=== PATIENT | male | born 1935 | race Caucasian/White ===

== ENCOUNTER 2017-07-04 12:46 | Inpatient (IN) ==
[2017-07-04 13:33] LABS: Basophils % 0.8 %; Eosinophils # 0.1 K/mcL (0.0-0.6); Eosinophils % 2.5 %; Hematocrit 32.4 % (37.5-50.1); Hemoglobin 10.2 g/dL (12.9-16.9); Immature Granulocytes % 0.4 % (0-4); Lymphocytes # 1.2 K/mcL (0.6-4.6); Lymphocytes % 22.1 %; Mean Corpuscular HGB Conc 31.5 g/dL (31.6-35.5); Mean Corpuscular Hemoglobin 29.4 pg (28.0-33.3); Mean Corpuscular Volume 93.4 fL (83.0-100.0); Mean Platelet Volume 9.9 fL (9.4-12.4); Monocytes # 0.4 K/mcL (0.0-1.3); Monocytes % 7.4 %; Neutrophils # 3.5 K/mcL (1.6-8.9); Platelet Count 228 K/mcL (140-400); Red Blood Count 3.47 M/mcL (4.19-5.50); Red Cell Distribution Width 13.3 % (11.5-14.5); Segmented Neutrophils % 66.8 %
[2017-07-04 13:53] LABS: Troponin I < 0.03 ng/mL (< 0.04)
[2017-07-04 13:56] LABS: BUN/Creatinine Ratio 13 (6-26); Blood Urea Nitrogen 14 mg/dL (8-23); Calcium 8.8 mg/dL (8.6-10.3); Carbon Dioxide 24 mEq/L (23-29); Chloride 107 mEq/L (98-107); Glucose 128 mg/dL (70-105); Osmolality,Calculated 288 (280-300); Potassium 4.5 mEq/L (3.5-5.1); Sodium 138 mEq/L (136-145); eGFR For African Americans > 60 (> 60); eGFR For Non-African Americans > 60 (> 60)
[2017-07-04] MEDS ORDERED: Furosemide 20 MG/2 ML VIAL IVP ONE (13:58)
--- NOTE | 2017-07-04 14:00 | Emergency Department Note ---
Disposition Clinical Impression: CHF (congestive heart failure) Qualifiers: Heart failure type: right-sided Heart failure chronicity: acute Qualified Code( s): I50.811 - Acute right heart failure Atrial fibrillation Qualifiers: Atrial fibrillation type: unspecified Qualified Code(s): I48.91 - Unspecified atrial fibrillation Disposition: Admitted As Inpatient Condition: Good Time of Disposition: 15:41 General Adult HPI - General Chief complaint: ED Shortness of Breath/Dyspnea Stated complaint: MELISSA Source: patient, family Limitations: no limitations Nursing Notes Reviewed: Yes Vital Signs Reviewed: Yes - History of Present Illness HPI Narrative: 81-year-old male with significant past medical history of hypertension presenting to the emergency department with chief complaint of dyspnea on exertion. Patient states for the last 1-2 weeks he has become progressively more dyspneic on exertion. Denies any history of COPD or asthma. Denies any fevers, cough, nausea, vomiting or diarrhea. Denies chest pain or abdominal pain. Denies any cardiac history. Patient states his progressively been getting worse. No known sick contacts. Patient denies any concerns or complaints while he is sitting in the bed. Pain Scale: 0 - Related Data Home Medications Medication Instructions Recorded Confirmed Doxazosin [Cardura] 8 mg PO HS 05/14/15 07/04/17 Mv-Min/Vit C/Glut/Rhea AC/Hc124 1 tab PO DAILY 06/16/17 07/04/17 [Airborne Tablet Chewable] Omeprazole [PriLOSEC] 20 mg PO DAILY 06/16/17 07/04/17 Clarithromycin [Biaxin] 500 mg PO BID 07/04/17 07/04/17 metroNIDAZOLE [Metronidazole] 500 mg PO BID 07/04/17 07/04/17 Allergies Allergy/AdvReac Type Severity Reaction Status Date / Time aspirin Allergy Hypertensio Verified 06/16/17 07:32 n All systems ED: reviewed and negative except as stated. Cardiovascular: Reports: dyspnea on exertion Respiratory: Reports: dyspnea Past Medical History - Past Medical History Attestation: Yes The following information was validated with the patient. Medical history: Reports: arthritis, other Surgical history: Reports: herniorrhaphy, vasectomy Psychiatric history: Reports: no psych history - Social History Smoking Status: Never smoker Smokeless Tobacco Status: No Alcohol use: Reports: none Drug use: Reports: none Physical Exam - General Limitations: no limitations General appearance: alert, in no apparent distress - Head Head exam: atraumatic, normocephalic, normal inspection - Eye Eye exam: Present: normal appearance. Absent: scleral icterus, conjunctival injection - ENT ENT exam: normal exam, mucous membranes moist - Neck Neck exam: Present: normal inspection, full ROM. Absent: tenderness, meningismus - Chest Chest inspection: Present: normal inspection, symmetric chest wall rise. Absent : tenderness, rash - Respiratory Respiratory exam: Present: other (Decreased breath sounds posteriorly) - Cardiovascular Cardiovascular exam: Present: tachycardia, irregular rhythm - Abdominal Exam Abdominal exam: Present: soft, Non-Tender. Absent: distention, guarding, rebound - Extremities Exam Extremities exam: Present: normal inspection, full ROM - Neurological Exam Neurological exam: Present: alert, oriented X3 - Psychiatric Psychiatric exam: Present: normal affect, normal mood - Skin Skin exam: Present: warm, intact Course Course Narrative: 81-year-old male presenting to the emergency department for dyspnea on exertion. Patient's physical exam shows decreased lung sounds bilaterally and irregular tachycardia. We will obtain basic laboratory analysis including troponin along with an EKG and chest x-ray. Patient is alert and oriented 3 in the room. Patient is tachycardic but otherwise vital signs stable. Disposition most likely admission but pending results. Patient agrees with this plan. - Reevaluation(s) Reevaluation #1: Patient's EKG shows atrial fibrillation. Patient denies being on any anticoagulation or rate control at this time. Patient's laboratory analysis shows mildly elevated BNP and chest x-ray shows bilateral pulmonary edema. We will provide the patient with 20 of IV Lasix. We will also provide him with a 10 mg push dose of Cardizem and a Cardizem drip. Patient is alert and oriented 3. Tachycardic in the room but otherwise vital signs stable. We will plan to admit the patient at this time for atrial fibrillation and CHF. I spoke with the hospitalist on-call Dr. Patino who agrees to accept the patient at this time. Vital Signs Temperature 97.9 F 07/04/17 12:48 Pulse Rate 111 07/04/17 12:48 Respiratory Rate 18 07/04/17 12:48 Blood Pressure 109/70 07/04/17 12:48 O2 Sat by Pulse Oximetry 97 07/04/17 12:48 Temperature 97.9 F 07/04/17 12:48 Pulse Rate 112 07/04/17 15:23 Respiratory Rate 19 07/04/17 15:23 Blood Pressure 109/77 07/04/17 15:23 O2 Sat by Pulse Oximetry 92 07/04/17 15:23 Oxygen Delivery Oxygen Delivery Nasal Cannula Medical Decision Making - Lab Data Result diagrams: 07/04/17 13:12 07/04/17 13:12 Lab Results 07/04/17 07/04/17 07/04/17 Range/Units 13:12 13:12 13:12 WBC 5.3 (4.3-11.1) K/mcL RBC 3.47 L (4.19-5.50) M/mcL Hgb 10.2 L (12.9-16.9) g/dL Hct 32.4 L (37.5-50.1) % MCV 93.4 (83.0-100.0) fL MCH 29.4 (28.0-33.3) pg MCHC 31.5 L (31.6-35.5) g/dL RDW 13.3 (11.5-14.5) % Plt Count 228 (140-400) K/mcL MPV 9.9 (9.4-12.4) fL Immature Gran % 0.4 (0-4) % Seg Neutrophils % 66.8 % Lymphocytes % 22.1 % Monocytes % 7.4 % Eosinophils % 2.5 % Basophils % 0.8 % Neutrophils # 3.5 (1.6-8.9) K/mcL Lymphocytes # 1.2 (0.6-4.6) K/mcL Monocytes # 0.4 (0.0-1.3) K/mcL Eosinophils # 0.1 (0.0-0.6) K/mcL Basophils # 0.0 (0.0-0.2) K/mcL Sodium 138 (136-145) mEq/L Potassium 4.5 (3.5-5.1) mEq/L Chloride 107 (98-107) mEq/L Carbon Dioxide 24 (23-29) mEq/L BUN 14 (8-23) mg/dL Creatinine 1.06 (0.70-1.30) mg/dL Est GFR ( Amer) > 60 (> 60) Est GFR (Non-Af Amer) > 60 (> 60) BUN/Creatinine Ratio 13 (6-26) Glucose 128 H (70-105) mg/dL Calculated Osmolality 288 (280-300) Lactic Acid 2.1 (0.5-2.2) mmol/L Calcium 8.8 (8.6-10.3) mg/dL Troponin I < 0.03 (< 0.04) ng/mL B-Natriuretic Peptide (Less than 100) pg/mL 07/04/17 Range/Units 13:12 WBC (4.3-11.1) K/mcL RBC (4.19-5.50) M/mcL Hgb (12.9-16.9) g/dL Hct (37.5-50.1) % MCV (83.0-100.0) fL MCH (28.0-33.3) pg MCHC (31.6-35.5) g/dL RDW (11.5-14.5) % Plt Count (140-400) K/mcL MPV (9.4-12.4) fL Immature Gran % (0-4) % Seg Neutrophils % % Lymphocytes % % Monocytes % % Eosinophils % % Basophils % % Neutrophils # (1.6-8.9) K/mcL Lymphocytes # (0.6-4.6) K/mcL Monocytes # (0.0-1.3) K/mcL Eosinophils # (0.0-0.6) K/mcL Basophils # (0.0-0.2) K/mcL Sodium (136-145) mEq/L Potassium (3.5-5.1) mEq/L Chloride (98-107) mEq/L Carbon Dioxide (23-29) mEq/L BUN (8-23) mg/dL Creatinine (0.70-1.30) mg/dL Est GFR ( Amer) (> 60) Est GFR (Non-Af Amer) (> 60) BUN/Creatinine Ratio (6-26) Glucose (70-105) mg/dL Calculated Osmolality (280-300) Lactic Acid (0.5-2.2) mmol/L Calcium (8.6-10.3) mg/dL Troponin I (< 0.04) ng/mL B-Natriuretic Peptide 596 H (Less than 100) pg/mL - EKG Data EKG #1 EKG attestation: Yes I reviewed and interpreted this EKG. EKG results narrative: Atrial fibrillation with RVR. 144 bpm. QRS 94, QTC 380. No signs of ST segment elevation or acute ischemia. Compared to previous EKG on 06/18/2017 no significant changes noted.
--- NOTE | 2017-07-04 14:16 | Emergency Department Note ---
Disposition Clinical Impression: CHF (congestive heart failure) Qualifiers: Heart failure type: right-sided Heart failure chronicity: acute Qualified Code( s): I50.811 - Acute right heart failure Disposition: Admitted As Inpatient Condition: Good Referrals: Vance Judge Jr, MD [Primary Care Provider] - Forms: ED Satisfaction Letter Time of Disposition: 14:15 General Adult HPI - General Chief complaint: ED Shortness of Breath/Dyspnea Stated complaint: MELISSA Source: patient, family Limitations: no limitations - History of Present Illness Pain Scale: 0 - Related Data Home Medications Medication Instructions Recorded Confirmed Doxazosin [Cardura] 8 mg PO HS 05/14/15 06/18/17 Mv-Min/Vit C/Glut/Rhea AC/Hc124 1 tab PO DAILY 06/16/17 06/18/17 [Airborne Tablet Chewable] Omeprazole [PriLOSEC] 20 mg PO DAILY 06/16/17 06/18/17 Allergies Allergy/AdvReac Type Severity Reaction Status Date / Time aspirin Allergy Hypertensio Verified 06/16/17 07:32 n Past Medical History - Past Medical History Medical history: Reports: arthritis, other Surgical history: Reports: herniorrhaphy, vasectomy Psychiatric history: Reports: no psych history - Social History Smoking Status: Never smoker Smokeless Tobacco Status: No Alcohol use: Reports: none Drug use: Reports: none Physical Exam - General Limitations: no limitations General appearance: alert, in no apparent distress Course - Reevaluation(s) Reevaluation #1: I examined this patient and my medical decision-making was reviewed with the SOLAR FIELD SERVICE TECHNICIAN/PA/Advanced Practice Nurse/Resident Physician. I agree with the documented findings, disposition and treatment plan as described except to the extent set forth below. ED attending: Patient's emergency medicine resident Dr. Little JOSHI. Please see copy of this note for H&P evaluation and management and ED disposition. We both had independent [id number] time in contact with this patient. Briefly: 81-year-old male no prior history of coronary artery disease CHF or COPD presents with 7-10 days of worsening dyspnea on exertion and fatigue. Denies chest pain vomiting fevers chills dysuria medication changes ill contacts exotic recent travel. ED workup shows EKG shows no acute ischemic changes. Chest x-ray read by radiology as positive for CHF and his laboratories are essentially normal limits the negative troponin. Patient will get 20 mg of IV Lasix since he has never had this in the past, and patient will be admitted for new onset CHF. Provided 30 minutes of critical care service for this patient. Admission disposition pending Time: 14:14 Vital Signs Temperature 97.9 F 07/04/17 12:48 Pulse Rate 111 07/04/17 12:48 Respiratory Rate 18 07/04/17 12:48 Blood Pressure 109/70 07/04/17 12:48 O2 Sat by Pulse Oximetry 97 07/04/17 12:48 Temperature 97.9 F 07/04/17 12:48 Pulse Rate 111 07/04/17 12:48 Respiratory Rate 18 07/04/17 12:48 Blood Pressure 109/70 07/04/17 12:48 O2 Sat by Pulse Oximetry 97 07/04/17 12:48 Oxygen Delivery Oxygen Delivery Room Air Medical Decision Making - Lab Data Result diagrams: 07/04/17 13:12 07/04/17 13:12 Lab Results 07/04/17 07/04/17 07/04/17 Range/Units 13:12 13:12 13:12 WBC 5.3 (4.3-11.1) K/mcL RBC 3.47 L (4.19-5.50) M/mcL Hgb 10.2 L (12.9-16.9) g/dL Hct 32.4 L (37.5-50.1) % MCV 93.4 (83.0-100.0) fL MCH 29.4 (28.0-33.3) pg MCHC 31.5 L (31.6-35.5) g/dL RDW 13.3 (11.5-14.5) % Plt Count 228 (140-400) K/mcL MPV 9.9 (9.4-12.4) fL Immature Gran % 0.4 (0-4) % Seg Neutrophils % 66.8 % Lymphocytes % 22.1 % Monocytes % 7.4 % Eosinophils % 2.5 % Basophils % 0.8 % Neutrophils # 3.5 (1.6-8.9) K/mcL Lymphocytes # 1.2 (0.6-4.6) K/mcL Monocytes # 0.4 (0.0-1.3) K/mcL Eosinophils # 0.1 (0.0-0.6) K/mcL Basophils # 0.0 (0.0-0.2) K/mcL Sodium 138 (136-145) mEq/L Potassium 4.5 (3.5-5.1) mEq/L Chloride 107 (98-107) mEq/L Carbon Dioxide 24 (23-29) mEq/L BUN 14 (8-23) mg/dL Creatinine 1.06 (0.70-1.30) mg/dL Est GFR ( Amer) > 60 (> 60) Est GFR (Non-Af Amer) > 60 (> 60) BUN/Creatinine Ratio 13 (6-26) Glucose 128 H (70-105) mg/dL Calculated Osmolality 288 (280-300) Lactic Acid 2.1 (0.5-2.2) mmol/L Calcium 8.8 (8.6-10.3) mg/dL Troponin I < 0.03 (< 0.04) ng/mL B-Natriuretic Peptide (Less than 100) pg/mL 07/04/17 Range/Units 13:12 WBC (4.3-11.1) K/mcL RBC (4.19-5.50) M/mcL Hgb (12.9-16.9) g/dL Hct (37.5-50.1) % MCV (83.0-100.0) fL MCH (28.0-33.3) pg MCHC (31.6-35.5) g/dL RDW (11.5-14.5) % Plt Count (140-400) K/mcL MPV (9.4-12.4) fL Immature Gran % (0-4) % Seg Neutrophils % % Lymphocytes % % Monocytes % % Eosinophils % % Basophils % % Neutrophils # (1.6-8.9) K/mcL Lymphocytes # (0.6-4.6) K/mcL Monocytes # (0.0-1.3) K/mcL Eosinophils # (0.0-0.6) K/mcL Basophils # (0.0-0.2) K/mcL Sodium (136-145) mEq/L Potassium (3.5-5.1) mEq/L Chloride (98-107) mEq/L Carbon Dioxide (23-29) mEq/L BUN (8-23) mg/dL Creatinine (0.70-1.30) mg/dL Est GFR ( Amer) (> 60) Est GFR (Non-Af Amer) (> 60) BUN/Creatinine Ratio (6-26) Glucose (70-105) mg/dL Calculated Osmolality (280-300) Lactic Acid (0.5-2.2) mmol/L Calcium (8.6-10.3) mg/dL Troponin I (< 0.04) ng/mL B-Natriuretic Peptide 596 H (Less than 100) pg/mL
[2017-07-04] MEDS ORDERED: Naloxone 0.4 MG/ML INJ IVP PRN (15:01)
--- NOTE | 2017-07-04 16:18 | Internal Med History&Physical ---
<Efra Hoffmann - Last Filed: 07/04/17 16:15> Date of Encounter: 07/04/17 Time of Encounter: 16:16 Assessment and Plan (1) Atrial fibrillation Current visit: Yes Status: Acute Patient presents today with a 7-10 day history of increasing shortness of breath , worsens with exertion. Additionally, he is reporting fatigue. He was found to be in A. fib RVR with rate in the 150s upon arrival to the ED. Otherwise he reports that he has no h/o A-fib. He was recently seen and treated at [facility] ED with an episode of A. fib with RVR. At that time he was given IV fluid and converted to sinus rhythm. He was offered admission but refused. He is not on any anticoagulation any negative chronotropic medications or antiarrhythmics. He remains hemodynamically stable. His initial troponin was 0.03. He was given a 10 mg Cardizem bolus IV push while in the emergency department and his rate decreased to the low 100s but he remained in atrial fibrillation. -Continuous telemetry, continuous SPO2 monitoring -Follow troponin -Continue Cardizem drip -Consult cardiology for further recommendations -Weight-based Lovenox dosing twice a day for DVT prophylaxis Qualifiers: Atrial fibrillation type: unspecified Qualified Code(s): I48.91 - Unspecified atrial fibrillation (2) CHF (congestive heart failure) Current visit: Yes Status: Acute Presents today with dyspnea for 7-10 days. He reports the dyspnea is worsened with exertion and that he has been extremely fatigued. He was found to be in A. fib RVR. Chest x-ray reveals pulmonary edema. BNP elevated at 596. No prior history of congestive heart failure, pulmonary edema likely related to A. fib with RVR. -TTE -Consult cardio -Trend troponin -20 mg Lasix IV push twice a day Qualifiers: Heart failure type: right-sided Heart failure chronicity: acute Qualified Code(s): I50.811 - Acute right heart failure (3) DVT prophylaxis Current visit: Yes Status: Acute Weight-based Lovenox twice a day for DVT prophylaxis Internal Medicine - H&P: HPI Chief complaint: dyspnea 7-10 days, A-fib RVR Admitted From: Home Plans for Post Hospital Care: Home History of present illness: Mr. Ferraro is a 81 year old male with a PMH of arthritis, CHF, COPD. Presents to [facility] today with a 7-10 day history of worsening dyspnea and fatigue. He reports that he has been having increasing shortness of breath with activity. He was recently seen at [facility] ED and found to be in atrial fibrillation with RVR. At that time he was given IV fluids and converted. He was offered admission at that time but declined and went home. He is not taking any anticoagulation or antiarrhythmic medications. He reports that this past Friday he began having an increase in shortness of breath is above what he has been experiencing. Additionally, he admits to lightheadedness. He denies any chest pain, diaphoresis, nausea, vomiting, unilateral extremity swelling or pain. ED workup shows atrial fibrillation with RVR rate of 150s. EKG. Chest x -ray reveals pulmonary edema, his BNP is 596 and his troponin is 0.03. Patient is being admitted due to new onset of congestive heart failure and a recurrent episode of atrial fibrillation. Past Med Surg Social Fam HX - Past Medical History Medical history: arthritis, other Psychiatric history: no psych history - Past Surgical History Surgical History: herniorrhaphy, vasectomy - Social History Smoking Status: Never smoker Smokeless Tobacco Status: No Alcohol use: none Drug use: none - Family History Brother Hx Family Cardiac Disorders: Yes (CAD) Internal Medicine - H&P: Meds Doxazosin [Cardura] 8 mg PO HS 05/14/15 [History] Mv-Min/Vit C/Glut/Rhea AC/Hc124 [Airborne Tablet Chewable] 1 tab PO DAILY [History] Omeprazole [PriLOSEC] 20 mg PO DAILY 06/16/17 [History] Clarithromycin [Biaxin] 500 mg PO BID 07/04/17 [History] metroNIDAZOLE [Metronidazole] 500 mg PO BID 07/04/17 [History] 3 Allergy/AdvReac Type Severity Reaction Status Date / Time aspirin Allergy Hypertensio Verified 06/16/17 07:32 n All Systems PM: A 10-system review of systems was performed and is negative for pertinent findings except as documented above in the HPI. Review of systems: REVIEW OF SYSTEMS GENERAL: Negative for any nausea, vomiting, fevers, chills, or weight loss. Positive for fatigue NEUROLOGIC: Negative for any blurry vision, blind spots, double vision, facial asymmetry, dysphagia, dysarthria, hemiparesis, hemisensory deficits, vertigo, ataxia. HEENT: Negative for any head trauma, neck trauma, neck stiffness, photophobia, phonophobia, sinusitis, rhinitis. CARDIAC: Negative for any chest pain, paroxysmal nocturnal dyspnea, peripheral edema. Positive for shortness of breath; increasing with activity, positive for palpitations, and tachycardia. PULMONARY: Negative for any shortness of breath, wheezing, COPD, or TB exposure. GASTROINTESTINAL: Negative for any abdominal pain, nausea, vomiting, bright red blood per rectum, melena. GENITOURINARY: Negative for any dysuria, hematuria, incontinence. INTEGUMENTARY: Negative for any rashes, cuts, insect bites. RHEUMATOLOGIC: Negative for any joint pains, photosensitive rashes, history of vasculitis or kidney problems. HEMATOLOGIC: Negative for any abnormal bruising, frequent infections or bleeding. - Constitutional Vitals: Temp Pulse Resp BP Pulse Ox 97.9 F 112 15 117/90 92 07/04/17 12:48 07/04/17 15:23 07/04/17 16:07 07/04/17 16:07 07/04/17 15:23 General appearance: Present: A&O X 3 Exam: PHYSICAL EXAMINATION: GENERAL: The patient is a well-developed, well-nourished male in mild distress. He is alert and oriented x3. HEENT: Head is normocephalic and atraumatic. Extraocular muscles are intact. Pupils are equal, round, and reactive to light and accommodation. NECK: Supple. No carotid bruits. No lymphadenopathy or thyromegaly. LUNGS: Clear/diminished to auscultation. HEART: Tachycardic, irregular rhythm. ABDOMEN: Soft, nontender, and nondistended. Positive bowel sounds. No hepatosplenomegaly was noted. EXTREMITIES: Without any cyanosis, clubbing, rash, lesions or edema. NEUROLOGIC: Cranial nerves II through XII are grossly intact. PSYCHIATRIC: Flat affect, but denies suicidal or homicidal ideations. SKIN: No ulceration or induration present. Internal Med - H&P Results - Labs CBC & Chem 7: 07/04/17 13:12 07/04/17 13:12 - EKG Data -: EKG Interpreted by Myself Rate: tachycardia - EKG Data Prior EKG available for review: yes When compared to previous EKG: there is no significant change EKG comments: Atrial fibrillation with rapid ventricular response rate of 144 07/04/17 16:27 - Impressions Impressions Chest X-Ray 07/04/17 12:52 IMPRESSION: Findings suggestive of pulmonary edema and bilateral pleural effusions. Redemonstration of multiple calcified pleural plaques. D/ / 07/04/2017 13:48:57 Lobito Carney MD / bassam Interpreting Provider: Lobito Carney MD <Shimon Patino - Last Filed: 07/04/17 17:50> Date of Encounter: 07/04/17 Time of Encounter: 17:30 Internal Medicine - H&P: HPI History of present illness: Mr. Ferraro is a 81 year old male All Systems PM: A 10-system review of systems was performed and is negative for pertinent findings except as documented above in the HPI. - Constitutional Vitals: Temp Pulse Resp BP Pulse Ox 97.8 F 107 20 110/76 94 07/04/17 16:38 07/04/17 16:38 07/04/17 16:38 07/04/17 16:38 07/04/17 17:07 Internal Med - H&P Results - Labs CBC & Chem 7: 07/04/17 13:12 07/04/17 13:12 - Attending Attestation I examined this patient and my medical decision-making was reviewed with the Nurse Practitioner, Efra Hoffmann. I agree with the documented findings, disposition and treatment plan as described with any changes as documented below. 81-year-old male patient with history of atrial fibrillation presented to the ER with complaints of worsening shortness of breath over the past week. He denies any chest pain but has been having some palpitations. No prior history of coronary artery disease. He had been seen in the ER here for A. fib with RVR and he was given IV fluids with his heart rhythm converting to sinus rhythm. He was then discharged home. Is not on any anticoagulation and does not take any rate controlling medications. No fever or chills. No cough. On exam, patient is awake and alert. In mild distress. Heart rate is tachycardic with irregular irregular rhythm. Breath sounds are normal with prolonged expiration EKG shows A. fib with RVR. Chest x-ray shows pulmonary edema and bilateral pleural effusions. Acute congestive heart failure: Possibly diastolic. We will get 2-D echocardiogram. Continue IV Lasix. Monitor vital signs. Monitor input and output. Consult cardiology. [place] with RVR: On Cardizem at this time. We will continue drip. Target heart rate less than 100. Patient has a [id number] score of at least 2. We will need to be on anticoagulation. Will place patient on IV Lovenox for now. Follow cardiology recommendations. COPD: History of COPD. O2 supplementation as needed. Not in acute exacerbation. Bronchodilators as needed. DVT prophylaxis with Lovenox.
[2017-07-04] MEDS ORDERED: Ipratropium/Albuterol Neb 3 ML IH PRN (17:50)
[2017-07-04] MEDS: *HR* Enoxaparin 80 MG/0.8 ML SYRINGE SQ SCH ×2 (18:00→18:02)
[2017-07-04] MEDS: Furosemide 20 MG/2 ML VIAL IVP SCH (21:55)
[2017-07-05 06:04] LABS: Basophils % 0.6 %; Eosinophils # 0.2 K/mcL (0.0-0.6); Eosinophils % 4.5 %; Hematocrit 31.7 % (37.5-50.1); Hemoglobin 10.1 g/dL (12.9-16.9); Immature Granulocytes % 0.2 % (0-4); Lymphocytes # 1.3 K/mcL (0.6-4.6); Lymphocytes % 25.8 %; Mean Corpuscular HGB Conc 31.9 g/dL (31.6-35.5); Mean Corpuscular Hemoglobin 29.6 pg (28.0-33.3); Mean Platelet Volume 9.7 fL (9.4-12.4); Monocytes # 0.4 K/mcL (0.0-1.3); Monocytes % 8.6 %; Neutrophils # 3.1 K/mcL (1.6-8.9); Platelet Count 219 K/mcL (140-400); Red Blood Count 3.41 M/mcL (4.19-5.50); Red Cell Distribution Width 13.4 % (11.5-14.5); Segmented Neutrophils % 60.3 %
[2017-07-05] MEDS: *HR* Enoxaparin 80 MG/0.8 ML SYRINGE SQ SCH ×2 (06:18→17:08)
[2017-07-05 06:27] LABS: BUN/Creatinine Ratio 14 (6-26); Blood Urea Nitrogen 14 mg/dL (8-23); Calcium 8.7 mg/dL (8.6-10.3); Carbon Dioxide 27 mEq/L (23-29); Chloride 105 mEq/L (98-107); Glucose 122 mg/dL (70-105); Osmolality,Calculated 288 (280-300); Sodium 138 mEq/L (136-145); eGFR For African Americans > 60 (> 60); eGFR For Non-African Americans > 60 (> 60)
[2017-07-05] MEDS: Furosemide 20 MG/2 ML VIAL IVP SCH ×2 (08:49→20:26)
[2017-07-05] MEDS: Multivit/Ca/Min/Fe/FA 1 TAB TABLET PO SCH (08:49)
--- NOTE | 2017-07-05 10:01 | Internal Med Progress Note ---
Date of Encounter: 07/05/17 Time of Encounter: 09:59 - Assessment and plan (1) Atrial fibrillation Current Visit: Yes Status: Acute Assessment and plan: The patient is in sinus rhythm now. Cardiology is consulted. He is on a Cardizem drip a 2.5 and rate is controlled in the 70-80s. Anticoagulation with Lovenox therapeutic dose for now. Await final cardiology recommendations. Follow-up on echocardiogram. Qualifiers: Atrial fibrillation type: unspecified Qualified Code(s): I48.91 - Unspecified atrial fibrillation (2) CHF (congestive heart failure) Current Visit: Yes Status: Acute Assessment and plan: We will continue to diurese with 20 mg IV Lasix twice a day. Cardiology to see. Troponin 0.032 so far.. Follow up on echo. O2 support as needed. Monitor I&O's.. Qualifiers: Heart failure type: right-sided Heart failure chronicity: acute Qualified Code(s): I50.811 - Acute right heart failure (3) DVT prophylaxis Current Visit: Yes Status: Acute Assessment and plan: On Lovenox therapeutic dose. - Subjective Interval history: Patient was seen and examined. No acute events. Converted to sinus. Shortness of breath is better. No chest pain. Afebrile.The patient was admitted yesterday with [place] st[place] with RVR and found to have evidence of congestive heart failure. Has been diuresed with 20 mg IV Lasix. Cardiology is consulted. - Constitutional Vitals: Temp Pulse Resp BP Pulse Ox 98.1 F 102 16 109/75 98 07/05/17 07:20 07/05/17 07:20 07/05/17 07:20 07/05/17 07:20 07/05/17 07:20 General appearance: Present: A&O X 3 Exam: GEN: NAD CVS: RRR. S1, S2, No m/r/g RESP: Bibasilar crackles ABD: Soft, NT, ND, +BS EXT: No edema. 2+ DP. No rashes NEURO: Nonfocal Internal Medicine: Result - Labs CBC & Chem 7: 07/05/17 05:52 07/05/17 05:52 Labs: Short CBC 07/05/17 Range/Units 05:52 WBC 5.1 (4.3-11.1) K/mcL Hgb 10.1 L (12.9-16.9) g/dL Hct 31.7 L (37.5-50.1) % Plt Count 219 (140-400) K/mcL Neutrophils # 3.1 (1.6-8.9) K/mcL BMP 07/05/17 05:52 Sodium 138 Potassium 4.0 Chloride 105 Carbon Dioxide 27 BUN 14 Creatinine 1.00 Glucose 122 H Calcium 8.7 Cardiac Enzymes 07/04/17 Range/Units 18:00 Troponin I < 0.03 (< 0.04) ng/mL Consult Discharge Plan - Plan Referrals: Vance Judge Jr, MD [Primary Care Provider] -
--- NOTE | 2017-07-05 10:53 | Cardiology Consult Note ---
Date of Encounter: 07/05/17 Time of Encounter: 09:30 Assessment and Plan (1) Atrial fibrillation Current Visit: Yes Status: Acute Per cardiology: -Upon admission noted to be a.fib RVR, HR 144. -ON cardizem drip at 2.5mg/hour. -Average HR previous 12 hours noted to be 96, a.fib. -BP marginal 90-100s systolic. -[id number] score 3(age, CHF). Currently on therapeutic lovenox. Denies bleeding or blood loss. Denies falls. Patient and agreeable for anticoagulation. -Echo pending. -Will switch cardizem to oral. -Further anticoagulation recommendations pending TTE. Qualifiers: Atrial fibrillation type: unspecified Qualified Code(s): I48.91 - Unspecified atrial fibrillation (2) CHF (congestive heart failure) Current Visit: Yes Status: Acute Per cardiology: -Admitted with CHF. -Plural effusions and pulmonary edema noted per Chest x-ray. -BNP 596. -On lasix IV 20mg BID. -Net negative 242ml. -Of note, still requiring O2, not normally on at home. -TTE pending. -Continue IV diuresis. -Further recommendations pending TTE. Qualifiers: Heart failure type: unspecified Heart failure chronicity: acute Qualified Code(s): I50.9 - Heart failure, unspecified Discussion w patient/family: The assessment and plan as outlined above was discussed with the patient and/or family members who expressed understanding and agreement. All questions were answered. Thank you for involving us in the care of your patient. Please call with any questions. Discussed and reviewed with . History of Present Illness Consult date: 07/04/17 Requesting physician: Efra Hoffmann Consult reason: CHF, a.fib RVR Chief complaint: shortness of breath History of present illness: Mr. Ferraro is a 81 year old male with a relevant past medical history of CHF, arthritis, possible history of a.fib. Patient presented to [facility] with complaints of increased shortness of breath. Patient reports 5 pound weight gain at home. Patient was not be in a.fib RVR upon presentation. Reji states " may have mentioned that before." However, patient denies taking any rate controlling medications or anticoagulation. Patient denies palpitations or fluttering. Denies dizziness or lightheadedness. Patient denies active bleeding or blood loss. Patient denies falls at home. Past Med Surg Social Fam HX - Past Medical History Attestation: Yes The following information was validated with the patient. Source: patient, old records reviewed Medical history: arthritis, CHF, other Psychiatric history: no psych history - Past Surgical History Surgical History: herniorrhaphy, vasectomy - Social History Smoking Status: Never smoker Smokeless Tobacco Status: No Alcohol use: none Drug use: none - Family History Brother Hx Family Cardiac Disorders: Yes (CAD) Medications and Allergies Doxazosin [Cardura] 8 mg PO HS 05/14/15 [History] Mv-Min/Vit C/Glut/Rhea [id number] [Airborne Tablet Chewable] 1 tab PO DAILY [History] Omeprazole [PriLOSEC] 20 mg PO DAILY 06/16/17 [History] Clarithromycin [Biaxin] 500 mg PO BID 07/04/17 [History] metroNIDAZOLE [Metronidazole] 500 mg PO BID 07/04/17 [History] 3 Allergy/AdvReac Type Severity Reaction Status Date / Time aspirin Allergy Hypertensio Verified 06/16/17 07:32 n All Systems Review: The remainder of the systems were reviewed and are negative - Constitutional Constitutional: weight gain - Cardiovascular Cardiovascular: as per HPI, dyspnea at rest, dyspnea on exertion Physical Examination Vital Signs, Last 4 Hours Temp Pulse Resp BP Pulse Ox 07/05/17 07:20 98.1 F 102 16 109/75 98 General: Conversant, No Apparent Distress HEENT: Atraumatic, Normocephaly, Mucus Membranes Moist Neck: No JVD, Normal carotid pulses Cardiac: Normal S1 and S2, No Murmur, Other (Irregularly irregular ) Lungs: Normal Breath Sounds, No Wheeze, Rales, Rhonchi Neuro: Alert and responsive, No focal deficits noted Abdomen: Soft, Non-Tender Skin: No rashes noted on visualized skin Musculoskeletal: No Chest Wall Tenderness Extremities: No Clubbing, No Cyanosis, Normal Pulses, Other (Mild bilateral pedal edema noted. ) Results 07/05/17 05:52 07/05/17 05:52 Lab Results Impressions Chest X-Ray 07/04/17 12:52 IMPRESSION: 1. Findings suggestive of pulmonary edema and bilateral pleural effusions. 2. Redemonstration of multiple calcified pleural plaques. D/ / 07/04/2017 13:48:57 Lobito Carney MD / bassam Interpreting Provider: Lobito Carney MD Active Medications Albuterol/Ipratropium (Duoneb) 3 ml IH [id number] PRN; Protocol PRN Reason: Shortness Of Breath/Wheezing Stop: 01/03/18 17:51 Doxazosin Mesylate (Cardura) 8 mg PO HS [facility] Stop: 01/03/18 21:01 Last Admin: 07/04/17 21:55 Dose: Not Given Enoxaparin Sodium (Lovenox) 70 mg 1 mg/kg (70 mg) SQ Q12HR [facility] PRN Reason: Protocol Stop: 01/03/18 16:01 Last Admin: 07/05/17 06:18 Dose: 70 mg Furosemide (Lasix) 20 mg IVP BID [facility] Stop: 01/03/18 21:01 Last Admin: 07/05/17 08:49 Dose: 20 mg Diltiazem HCl 125 mg/ Sodium (Chloride) 125 mls @ 5 mls/hr IVC .Q24H [facility]; 5 MG/ HR PRN Reason: Protocol Stop: 01/03/18 15:01 Last Titration: 07/05/17 01:22 Dose: 2.5 mg/hr, 2.5 mls/hr Multivitamins/Calcium (Thera M Plus) 1 tab PO DAILY [facility] Stop: 01/04/18 09:01 Last Admin: 07/05/17 08:49 Dose: 1 tab Naloxone HCl (Narcan) 0.4 mg IVP Q2MIN PRN PRN Reason: SEE COMMENTS Stop: 01/03/18 15:02 Omeprazole (Prilosec) 20 mg PO DAILY [facility] PRN Reason: Protocol Stop: 01/04/18 09:01 Last Admin: 07/05/17 08:49 Dose: 20 mg Laboratory Tests 07/04/17 07/04/17 07/04/17 13:12 13:12 18:00 Hgb Potassium Creatinine Troponin I < 0.03 < 0.03 B-Natriuretic Peptide 596 H 07/05/17 07/05/17 05:52 05:52 Hgb 10.1 L Potassium 4.0 Creatinine 1.00 Troponin I B-Natriuretic Peptide - Imaging and Cardiology Chest Xray: report reviewed Echo: pending - EKG Interpretation EKG results cardiology: personally reviewed (ECG with a.fib RVR, HR 144. PVCs noted.), other (Telemetry reviewed with average HR previous 12 hours noted to be 96, a.fib. PVCs noted.) Consult Discharge Plan - Plan Referrals: Vance Judge Jr, MD [Primary Care Provider] -
[2017-07-05 15:34] LABS: Thyroid Stimulating Hormone 1.52 mcIU/mL (0.340-5.600)
[2017-07-06] MEDS: *HR* Enoxaparin 80 MG/0.8 ML SYRINGE SQ SCH ×2 (06:29→17:34)
[2017-07-06] MEDS: Furosemide 20 MG/2 ML VIAL IVP SCH (07:54)
[2017-07-06] MEDS: Multivit/Ca/Min/Fe/FA 1 TAB TABLET PO SCH (07:54)
--- NOTE | 2017-07-06 10:26 | Internal Med Progress Note ---
Date of Encounter: 07/06/17 Time of Encounter: 10:24 - Assessment and plan (1) Atrial fibrillation Current Visit: Yes Status: Acute Assessment and plan: The patient is in sinus rhythm now. Cardiology is consulted. Started on oral Cardizem per cardiology. Anticoagulation with Lovenox therapeutic dose for now. Appreciate cardiology's help. echocardiogram noted.. Qualifiers: Atrial fibrillation type: unspecified Qualified Code(s): I48.91 - Unspecified atrial fibrillation (2) CHF (congestive heart failure) Current Visit: Yes Status: Acute Assessment and plan: We will continue to diurese with 20 mg IV Lasix twice a day. Cardiology is following. Echocardiogram with severe mitral regurgitation as well as ejection fraction of 30-35%. We will need a left heart catheterization. O2 support as needed. Monitor I&O's.. Qualifiers: Heart failure type: unspecified Heart failure chronicity: acute Qualified Code(s): I50.9 - Heart failure, unspecified (3) DVT prophylaxis Current Visit: Yes Status: Acute Assessment and plan: On Lovenox therapeutic dose. - Subjective Interval history: Patient was seen and examined. No acute events. Remains in sinus. Significant diuresis. Shortness of breath is better. No chest pain. Afebrile.echo was done. Seen by cardiology. The patient was admitted with A. fib with RVR and found to have evidence of congestive heart failure. Has been diuresed with 20 mg IV Lasix. - Constitutional Vitals: Temp Pulse Resp BP Pulse Ox 97.8 F 118 17 103/70 91 07/06/17 07:21 07/06/17 07:21 07/06/17 07:21 07/06/17 07:21 07/06/17 08:00 General appearance: Present: A&O X 3 Exam: GEN: NAD CVS: RRR. S1, S2, No m/r/g RESP: Bibasilar crackles ABD: Soft, NT, ND, +BS EXT: No edema. 2+ DP. No rashes NEURO: Nonfocal Internal Medicine: Result - Labs CBC & Chem 7: 07/05/17 05:52 07/05/17 05:52 - Impressions Impressions Echocardiogram 07/05/17 15:37 Impressions: Atrial fibrillation. Moderately dilated left atrium. No pulmonary hypertension. LVEF 30-35%. Global left ventricular systolic dysfunction. Severe mitral regurgitation with predominately reversed systolic PV flow pattern Left Ventricular Wall Motion: Rest Echo Findings The apex, apical inferior, mid inferior, basal inferior, apical anterior, mid anterior, basal anterior, apical septal, mid inferior septal, basal inferior septal, apical lateral, mid anterior lateral, basal anterior lateral, mid anterior septal, mid inferior lateral, basal anterior septal and basal inferior lateral walker were hypokinetic. Findings: Study Quality * Technically adequate exam. Right Ventricle * Normal right ventricular structure and function. Right Atrium * Normal right atrial size. Aortic Valve * Trileaflet aortic valve with normal function. Mitral Valve * Severe mitral regurgitation. * No mitral stenosis. Interatrial Septum * No evidence of PFO by color Doppler. Aorta * Normally sized aortic root. Pericardium * The pericardium appears normal. ECG Findings * Atrial fibrillation. Left Atrium * Moderately dilated left atrium. Tricuspid Valve * No tricuspid stenosis. * Trace tricuspid regurgitation. * Estimated RVSP is 25 mmHg. * Estimated RA pressure is 3-5 mmHg. * No pulmonary hypertension. Pulmonic Valve * No pulmonic stenosis. * Mild pulmonic regurgitation. Left Ventricle * Indeterminate diastolic function. * LVEF 30-35%. * global left ventricular systolic dysfunction. IVC * Normal IVC dimensions and inspiratory collapse. Consult Discharge Plan - Plan Referrals: Vance Judge Jr, MD [Primary Care Provider] - (web request sent on 07/05/17)
--- NOTE | 2017-07-06 10:39 | Cardiology Progress Note ---
Date of Encounter: 07/06/17 Time of Encounter: 08:30 Assessment and Plan (1) Atrial fibrillation Current Visit: Yes Status: Acute Per cardiology: -Upon admission noted to be a.fib RVR, HR 144. -ON po cardizem 30mg Q8 hours. -Average HR previous 12 hours noted to be 115, a.fib. -BP marginal 90-100s systolic. -[id number] score 3(age, CHF). Currently on therapeutic lovenox. Denies bleeding or blood loss. Denies falls. Patient and agreeable for anticoagulation. -Echo with LVEF 30-35%, severe MR. -With reduced LVEF, will stop cardizem. Will start low dose beta lisa and will titrate as BP tolerates. -Regarding anticoagulation, with severe MR, will need coumadin pending ischemic evaluation. -Will continue to monitor. Qualifiers: Atrial fibrillation type: unspecified Qualified Code(s): I48.91 - Unspecified atrial fibrillation (2) CHF (congestive heart failure) Current Visit: Yes Status: Acute Per cardiology: -Admitted with CHF. Systolic. -Plural effusions and pulmonary edema noted per Chest x-ray. -BNP 596. -On lasix IV 20mg BID. -Net negative 560ml -Of note, still requiring O2, not normally on at home. -Euvolemic on exam. -TTE with LVEF 30-35%, global hypokinesis, moderately dilated left atrium, severe MR. -Will switch lasix to oral. -Starting toprol. Consider addition of michelet/arb once rate controlled and if BP will tolerate. -With new cardiomyopathy, recommend LHC. RIsks versus benefits of LHC explained to patient and family. Patient states understanding and agreeable to proceed. -Possible LHC tomorrow pending labs, and HR. -Will continue to monitor. Qualifiers: Heart failure type: unspecified Heart failure chronicity: acute Qualified Code(s): I50.9 - Heart failure, unspecified (3) Severe mitral regurgitation Current Visit: Yes Status: Acute Per cardiology: -Severe MR noted per TTE. -PLan for ischemic evaluation. Discussion w patient/family: The assessment and plan as outlined above was discussed with the patient and/or family members who expressed understanding and agreement. All questions were answered. Thank you for involving us in the care of your patient. Please call with any questions. Discussed and reviewed with . Subjective Principal diagnosis: CHF, a.fib RVR Interval history: Patient reports he feels better this morning. Patient is anxious regarding upcoming procedures. Objective Vital Signs, Last 4 Hours Temp Pulse Resp BP Pulse Ox 07/06/17 08:00 91 07/06/17 07:21 97.8 F 118 17 103/70 98 General: Conversant, No Apparent Distress HEENT: Atraumatic, Normocephaly, Mucus Membranes Moist Neck: No JVD, Normal carotid pulses Cardiac: Normal S1 and S2, No Murmur, Other (Irregularly irregular) Lungs: Normal Breath Sounds, No Wheeze, Rales, Rhonchi Neuro: Alert and responsive, No focal deficits noted Abdomen: Soft, Non-Tender Skin: No rashes noted on visualized skin Musculoskeletal: No Chest Wall Tenderness Extremities: No Clubbing, No Cyanosis, No Edema, Normal Pulses Results 07/05/17 05:52 07/05/17 05:52 Lab Results Impressions Echocardiogram 07/05/17 15:37 Impressions: Atrial fibrillation. Moderately dilated left atrium. No pulmonary hypertension. LVEF 30-35%. Global left ventricular systolic dysfunction. Severe mitral regurgitation with predominately reversed systolic PV flow pattern Left Ventricular Wall Motion: Rest Echo Findings The apex, apical inferior, mid inferior, basal inferior, apical anterior, mid anterior, basal anterior, apical septal, mid inferior septal, basal inferior septal, apical lateral, mid anterior lateral, basal anterior lateral, mid anterior septal, mid inferior lateral, basal anterior septal and basal inferior lateral walker were hypokinetic. Findings: Study Quality * Technically adequate exam. Right Ventricle * Normal right ventricular structure and function. Right Atrium * Normal right atrial size. Aortic Valve * Trileaflet aortic valve with normal function. Mitral Valve * Severe mitral regurgitation. * No mitral stenosis. Interatrial Septum * No evidence of PFO by color Doppler. Aorta * Normally sized aortic root. Pericardium * The pericardium appears normal. ECG Findings * Atrial fibrillation. Left Atrium * Moderately dilated left atrium. Tricuspid Valve * No tricuspid stenosis. * Trace tricuspid regurgitation. * Estimated RVSP is 25 mmHg. * Estimated RA pressure is 3-5 mmHg. * No pulmonary hypertension. Pulmonic Valve * No pulmonic stenosis. * Mild pulmonic regurgitation. Left Ventricle * Indeterminate diastolic function. * LVEF 30-35%. * global left ventricular systolic dysfunction. IVC * Normal IVC dimensions and inspiratory collapse. Active Medications Albuterol/Ipratropium (Duoneb) 3 ml IH [id number] PRN; Protocol PRN Reason: Shortness Of Breath/Wheezing Stop: 01/03/18 17:51 Doxazosin Mesylate (Cardura) 8 mg PO HS [facility] Stop: 01/03/18 21:01 Last Admin: 07/05/17 20:26 Dose: 8 mg Enoxaparin Sodium (Lovenox) 70 mg 1 mg/kg (70 mg) SQ Q12HR [facility] PRN Reason: Protocol Stop: 01/03/18 16:01 Last Admin: 07/06/17 06:29 Dose: 70 mg Furosemide (Lasix) 20 mg IVP BID [facility] Stop: 01/03/18 21:01 Last Admin: 07/06/17 07:54 Dose: 20 mg Diltiazem HCl 125 mg/ Sodium (Chloride) 125 mls @ 5 mls/hr IVC .Q24H [facility]; 5 MG/ HR PRN Reason: Protocol Stop: 01/03/18 15:01 Last Admin: 07/05/17 15:59 Dose: Not Given Metoprolol Succinate (Toprol Xl) 12.5 mg PO DAILY [facility] Stop: 01/05/18 10:46 Multivitamins/Calcium (Thera M Plus) 1 tab PO DAILY [facility] Stop: 01/04/18 09:01 Last Admin: 07/06/17 07:54 Dose: 1 tab Naloxone HCl (Narcan) 0.4 mg IVP Q2MIN PRN PRN Reason: SEE COMMENTS Stop: 01/03/18 15:02 Omeprazole (Prilosec) 20 mg PO DAILY [facility] PRN Reason: Protocol Stop: 01/04/18 09:01 Last Admin: 07/06/17 07:54 Dose: 20 mg Laboratory Tests 07/05/17 07/05/17 07/05/17 05:52 05:52 14:38 Hgb 10.1 L Creatinine 1.00 Magnesium 2.0 TSH 1.520 - Imaging and Cardiology Chest Xray: report reviewed Echo: report reviewed Cardiac cath: pending - EKG Interpretation EKG results cardiology: other (Telemetry reviewed with average HR previous 12 hours noted to be 115, a.fib. PVCs, couplets noted.) Consult Discharge Plan - Plan Referrals: Vance Judge Jr, MD [Primary Care Provider] - (web request sent on 07/05/17)
[2017-07-06 11:29] LABS: Basophils % 0.8 %; Eosinophils # 0.2 K/mcL (0.0-0.6); Eosinophils % 3.3 %; Hemoglobin 10.6 g/dL (12.9-16.9); Immature Granulocytes % 0.2 % (0-4); Lymphocytes # 1.3 K/mcL (0.6-4.6); Lymphocytes % 25.9 %; Mean Corpuscular HGB Conc 32.1 g/dL (31.6-35.5); Mean Corpuscular Hemoglobin 29.4 pg (28.0-33.3); Mean Corpuscular Volume 91.4 fL (83.0-100.0); Mean Platelet Volume 10.1 fL (9.4-12.4); Monocytes # 0.5 K/mcL (0.0-1.3); Monocytes % 9.3 %; Neutrophils # 3.1 K/mcL (1.6-8.9); Platelet Count 244 K/mcL (140-400); Red Blood Count 3.61 M/mcL (4.19-5.50); Red Cell Distribution Width 13.2 % (11.5-14.5); Segmented Neutrophils % 60.5 %
[2017-07-06] MEDS: Metoprolol XL (24 HR) Succ 25 MG TAB.ER.24H PO SCH (11:38)
[2017-07-06 11:42] LABS: BUN/Creatinine Ratio 13 (6-26); Blood Urea Nitrogen 15 mg/dL (8-23); Calcium 8.7 mg/dL (8.6-10.3); Carbon Dioxide 28 mEq/L (23-29); Chloride 101 mEq/L (98-107); Glucose 126 mg/dL (70-105); Magnesium 1.9 mg/dL (1.6-2.6); Osmolality,Calculated 282 (280-300); Potassium 3.6 mEq/L (3.5-5.1); Sodium 135 mEq/L (136-145); eGFR For African Americans > 60 (> 60); eGFR For Non-African Americans > 60 (> 60)
--- NOTE | 2017-07-06 14:36 | Event Note ---
Date of Encounter: 07/06/17 Time of Encounter: 14:34 - Cardiology Event Note Patient has ASA listed as allergy. Discussed at length with patient regarding allergy to ASA, patient states he has esophageal irritation and racing heart beat. Patient states he took ASA more than 30 years ago and it was a 325mg ASA. Discussed and reviewed with , does not feel that reaction is a true allergy. Will give ASA 81mg daily. Called and spoke with RN and recommend close observation after administration of ASA. Discussed and reviewed with patient and family, agree with plan.
[2017-07-06] MEDS: Aspirin Enteric Coated 81 MG Tablet PO SCH (15:57)
--- NOTE | 2017-07-06 16:50 | Event Note ---
Date of Encounter: 07/06/17 Time of Encounter: 16:48 Called by the patient nurse about the patient have an some left facial droop. The patient was examined by myself. He does have some minimal left facial droop but he says that he was therefore multiple weeks. He had a CT head on 06/18 which came back with no acute findings. The patient is alert oriented 3. He has no other focal neurological deficits. Cranial nerves 2 through 12 are intact We will continue to monitor the patient. Neuro checks with NIHSS
[2017-07-06] MEDS: Furosemide 20 MG TABLET PO SCH (17:33)
[2017-07-07] MEDS ORDERED: *HR* Digoxin 0.5 MG/2 ML AMPUL IVP ONE ×3 (01:52→16:00)
[2017-07-07 05:45] LABS: Basophils # 0.1 K/mcL (0.0-0.2); Basophils % 0.9 %; Eosinophils # 0.3 K/mcL (0.0-0.6); Eosinophils % 6.2 %; Hematocrit 34.6 % (37.5-50.1); Hemoglobin 11.2 g/dL (12.9-16.9); Immature Granulocytes % 0.4 % (0-4); Lymphocytes % 37.1 %; Mean Corpuscular HGB Conc 32.4 g/dL (31.6-35.5); Mean Corpuscular Hemoglobin 29.4 pg (28.0-33.3); Mean Corpuscular Volume 90.8 fL (83.0-100.0); Mean Platelet Volume 9.8 fL (9.4-12.4); Monocytes # 0.5 K/mcL (0.0-1.3); Neutrophils # 2.5 K/mcL (1.6-8.9); Platelet Count 252 K/mcL (140-400); Red Blood Count 3.81 M/mcL (4.19-5.50); Red Cell Distribution Width 13.2 % (11.5-14.5); Segmented Neutrophils % 46.4 %
[2017-07-07 05:59] LABS: BUN/Creatinine Ratio 16 (6-26); Blood Urea Nitrogen 18 mg/dL (8-23); Calcium 8.9 mg/dL (8.6-10.3); Carbon Dioxide 27 mEq/L (23-29); Chloride 106 mEq/L (98-107); Glucose 98 mg/dL (70-105); Magnesium 2.5 mg/dL (1.6-2.6); Osmolality,Calculated 292 (280-300); Potassium 4.2 mEq/L (3.5-5.1); Sodium 140 mEq/L (136-145); eGFR For African Americans > 60 (> 60); eGFR For Non-African Americans > 60 (> 60)
[2017-07-07] MEDS: Aspirin Enteric Coated 81 MG Tablet PO SCH (08:46)
[2017-07-07] MEDS: Furosemide 20 MG TABLET PO SCH ×2 (08:46→16:17)
[2017-07-07] MEDS: Multivit/Ca/Min/Fe/FA 1 TAB TABLET PO SCH (08:46)
[2017-07-07] MEDS: Metoprolol XL (24 HR) Succ 25 MG TAB.ER.24H PO SCH (08:46)
--- NOTE | 2017-07-07 10:58 | Cardiology Progress Note ---
Date of Encounter: 07/07/17 Time of Encounter: 10:00 Assessment and Plan (1) Atrial fibrillation Current Visit: Yes Status: Acute Per cardiology: -Upon admission noted to be a.fib RVR, HR 144. -ON toprol 12.5mg daily. -Average HR previous 12 hours noted to be 113, a.fib. -BP marginal 90-100s systolic. -[id number] score 3(age, CHF). Currently on therapeutic lovenox. Denies bleeding or blood loss. Denies falls. Patient and agreeable for anticoagulation. -Echo with LVEF 30-35%, severe MR. -Avoid CCB with cardiomyopathy. -Per discussion with , With marginal BPs will give IV digoxin load, 0.25mg given by primary service at 0200. Will give 0.5mg IV now, then 0.25mg in 6 hours. Will start 0.125mg po tomorrow. -Regarding anticoagulation, with severe MR, will need coumadin pending ischemic evaluation. -Will continue to monitor. Qualifiers: Atrial fibrillation type: unspecified Qualified Code(s): I48.91 - Unspecified atrial fibrillation (2) CHF (congestive heart failure) Current Visit: Yes Status: Acute Per cardiology: -Admitted with CHF. Systolic. -Plural effusions and pulmonary edema noted per Chest x-ray. -BNP 596. -Net negative 600ml -Of note, still requiring O2, not normally on at home. -Euvolemic on exam. -TTE with LVEF 30-35%, global hypokinesis, moderately dilated left atrium, severe MR. -On lasix oral. -On beta lisa. -Consider addition of michelet/arb once rate controlled and if BP will tolerate. -With new cardiomyopathy, recommend LHC. RIsks versus benefits of LHC explained to patient and family. Patient states understanding and agreeable to proceed. -Unable to undergo LHC today due to tachycardia. Possible LHC tomorrow pending labs, and HR. Patient and family updated and agree with plan. -Will continue to monitor. Qualifiers: Heart failure type: unspecified Heart failure chronicity: acute Qualified Code(s): I50.9 - Heart failure, unspecified (3) Severe mitral regurgitation Current Visit: Yes Status: Acute Per cardiology: -Severe MR noted per TTE. -PLan for ischemic evaluation. Discussion w patient/family: The assessment and plan as outlined above was discussed with the patient and/or family members who expressed understanding and agreement. All questions were answered. Thank you for involving us in the care of your patient. Please call with any questions. Discussed and reviewed with Subjective Principal diagnosis: CHF, a.fib RVR Interval history: Patient reports he feels better this morning. Patient is anxious regarding upcoming procedures. Patient states shortness of breath improved. Objective Vital Signs, Last 4 Hours Temp Pulse Resp BP Pulse Ox 07/07/17 08:49 94 07/07/17 07:47 97.5 F L 96 16 98/62 94 General: Conversant, No Apparent Distress HEENT: Atraumatic, Normocephaly, Mucus Membranes Moist Neck: No JVD, Normal carotid pulses Cardiac: Normal S1 and S2, No Murmur, Other (Irregularly irregular) Lungs: Normal Breath Sounds, No Wheeze, Rales, Rhonchi Neuro: Alert and responsive, No focal deficits noted Abdomen: Soft, Non-Tender Skin: No rashes noted on visualized skin Musculoskeletal: No Chest Wall Tenderness Extremities: No Clubbing, No Cyanosis, No Edema, Normal Pulses Results 07/07/17 05:26 07/07/17 05:26 Lab Results Active Medications Albuterol/Ipratropium (Duoneb) 3 ml IH [id number] PRN; Protocol PRN Reason: Shortness Of Breath/Wheezing Stop: 01/03/18 17:51 Aspirin (Aspirin Ec) 81 mg PO DAILY [facility] Stop: 01/05/18 14:46 Last Admin: 07/07/17 08:46 Dose: 81 mg Atorvastatin Calcium (Lipitor) 40 mg PO HS [facility] Stop: 01/05/18 21:01 Last Admin: 07/06/17 20:39 Dose: 40 mg Digoxin (Lanoxin) 0.25 mg IVP ONCE ONE Stop: 07/07/17 16:01 Digoxin (Lanoxin) 0.125 mg PO DAILY [facility] Stop: 01/07/18 09:01 Doxazosin Mesylate (Cardura) 8 mg PO HS [facility] Stop: 01/03/18 21:01 Last Admin: 07/06/17 20:39 Dose: 8 mg Enoxaparin Sodium (Lovenox) 70 mg 1 mg/kg (70 mg) SQ Q12HR [facility] PRN Reason: Protocol Stop: 01/03/18 16:01 Last Admin: 07/06/17 17:34 Dose: 70 mg Furosemide (Lasix) 20 mg PO BIDDIURETIC [facility] Stop: 01/05/18 17:01 Last Admin: 07/07/17 08:46 Dose: 20 mg Diltiazem HCl 125 mg/ Sodium (Chloride) 125 mls @ 5 mls/hr IVC .Q24H [facility]; 5 MG/ HR PRN Reason: Protocol Stop: 01/03/18 15:01 Last Titration: 07/06/17 18:37 Dose: 0 mg/hr, 0 mls/hr Metoprolol Succinate (Toprol Xl) 12.5 mg PO DAILY [facility] Stop: 01/05/18 10:46 Last Admin: 07/07/17 08:46 Dose: 12.5 mg Multivitamins/Calcium (Thera M Plus) 1 tab PO DAILY [facility] Stop: 01/04/18 09:01 Last Admin: 07/07/17 08:46 Dose: 1 tab Naloxone HCl (Narcan) 0.4 mg IVP Q2MIN PRN PRN Reason: SEE COMMENTS Stop: 01/03/18 15:02 Omeprazole (Prilosec) 20 mg PO DAILY [facility] PRN Reason: Protocol Stop: 01/04/18 09:01 Last Admin: 07/07/17 08:46 Dose: 20 mg Laboratory Tests 07/06/17 07/07/17 07/07/17 10:59 05:26 05:26 Hgb 11.2 L Potassium 4.2 Creatinine 1.15 1.14 Magnesium 2.5 - Imaging and Cardiology Chest Xray: report reviewed Echo: report reviewed Cardiac cath: pending - EKG Interpretation EKG results cardiology: other (Telemetry reviewed with average HR previous 12 hours noted to be 113, a.fib. PVCs noted.) Consult Discharge Plan - Plan Referrals: Vance Judge Jr, MD [Primary Care Provider] - 07/11/17 2:30 pm (web request sent on 07/05/17)
--- NOTE | 2017-07-07 11:15 | Internal Med Progress Note ---
Date of Encounter: 07/07/17 Time of Encounter: 11:13 - Assessment and plan (1) Atrial fibrillation Current Visit: Yes Status: Acute Assessment and plan: The patient is in A. fib but better controlled now after digoxin. Cardizem drip could not be continued due to hypotension.. Cardiology is consulted. Now on digoxin and metoprolol. Anticoagulation with Lovenox therapeutic dose for now. Will need to be bridged with Coumadin given to severe MR. Appreciate cardiology's help Qualifiers: Atrial fibrillation type: unspecified Qualified Code(s): I48.91 - Unspecified atrial fibrillation (2) CHF (congestive heart failure) Current Visit: Yes Status: Acute Assessment and plan: We will continue to diurese with 20 mg IV Lasix twice a day. Cardiology is following. Echocardiogram with severe mitral regurgitation as well as ejection fraction of 30-35%. left heart catheterization today. O2 support as needed. Monitor I&O's.. Qualifiers: Heart failure type: unspecified Heart failure chronicity: acute Qualified Code(s): I50.9 - Heart failure, unspecified (3) DVT prophylaxis Current Visit: Yes Status: Acute Assessment and plan: On Lovenox therapeutic dose. - Subjective Interval history: Patient was seen and examined. Left heart catheterization plan today. Cardizem drip had to be restarted yesterday evening due to A. fib with RVR. His blood pressure could not tolerate it and ended up being stopped and digoxin was given. This morning his heart rate is in the low 100s anywhere between 100- 110. Remains in sinus. On 2.5 L nasal cannula. Shortness of breath is better. No chest pain. Afebrile. The patient was admitted with A. fib with RVR and found to have evidence of congestive heart failure. Has been diuresed with 20 mg IV Lasix. - Constitutional Vitals: Temp Pulse Resp BP Pulse Ox 98.0 F 110 16 97/59 91 07/07/17 11:01 07/07/17 11:01 07/07/17 11:01 07/07/17 11:01 07/07/17 11:01 General appearance: Present: A&O X 3 Exam: GEN: NAD CVS: irregular,. S1, S2, No m/r/g RESP: Bibasilar crackles ABD: Soft, NT, ND, +BS EXT: No edema. 2+ DP. No rashes NEURO: Nonfocal Internal Medicine: Result - Labs CBC & Chem 7: 07/07/17 05:26 07/07/17 05:26 Labs: Short CBC 07/07/17 Range/Units 05:26 WBC 5.4 (4.3-11.1) K/mcL Hgb 11.2 L (12.9-16.9) g/dL Hct 34.6 L (37.5-50.1) % Plt Count 252 (140-400) K/mcL Neutrophils # 2.5 (1.6-8.9) K/mcL BMP 07/07/17 05:26 Sodium 140 Potassium 4.2 Chloride 106 Carbon Dioxide 27 BUN 18 Creatinine 1.14 Glucose 98 Calcium 8.9 Consult Discharge Plan - Plan Referrals: Vance Judge Jr, MD [Primary Care Provider] - 07/11/17 2:30 pm (web request sent on 07/05/17)
[2017-07-07] MEDS: *HR* Enoxaparin 80 MG/0.8 ML SYRINGE SQ SCH (17:37)
[2017-07-08 05:47] LABS: Hematocrit 37.9 % (37.5-50.1); Hemoglobin 12.2 g/dL (12.9-16.9); Mean Corpuscular HGB Conc 32.2 g/dL (31.6-35.5); Mean Platelet Volume 9.8 fL (9.4-12.4); Platelet Count 263 K/mcL (140-400); Red Blood Count 4.21 M/mcL (4.19-5.50); Red Cell Distribution Width 12.9 % (11.5-14.5)
[2017-07-08 06:07] LABS: BUN/Creatinine Ratio 20 (6-26); Blood Urea Nitrogen 21 mg/dL (8-23); Calcium 8.6 mg/dL (8.6-10.3); Carbon Dioxide 26 mEq/L (23-29); Chloride 101 mEq/L (98-107); Glucose 98 mg/dL (70-105); Magnesium 2.2 mg/dL (1.6-2.6); Osmolality,Calculated 281 (280-300); Potassium 4.1 mEq/L (3.5-5.1); Sodium 134 mEq/L (136-145); eGFR For African Americans > 60 (> 60); eGFR For Non-African Americans > 60 (> 60)
--- NOTE | 2017-07-08 06:30 | Electrocardiograph Report ---
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
[2017-07-08] MEDS: Aspirin Enteric Coated 81 MG Tablet PO SCH (09:32)
[2017-07-08] MEDS: Multivit/Ca/Min/Fe/FA 1 TAB TABLET PO SCH (09:32)
[2017-07-08] MEDS: *HR* Digoxin 0.125 MG TABLET PO SCH (09:37)
[2017-07-08] MEDS: Furosemide 20 MG TABLET PO SCH (09:37)
[2017-07-08] MEDS: Metoprolol XL (24 HR) Succ 25 MG TAB.ER.24H PO SCH (09:37)
--- NOTE | 2017-07-08 11:45 | Internal Med Progress Note ---
Date of Encounter: 07/08/17 Time of Encounter: 11:43 - Assessment and plan (1) Atrial fibrillation Current Visit: Yes Status: Acute Assessment and plan: The patient is in A. fib is better controlled this morning as he is in the 80s to 90s. Off Cardizem drip. Started on digoxin. Continue with metoprolol as well. Cardiology is consulted. Anticoagulation with Lovenox therapeutic dose for now. Will need to be bridged with Coumadin given to severe MR. Appreciate cardiology's help Qualifiers: Atrial fibrillation type: unspecified Qualified Code(s): I48.91 - Unspecified atrial fibrillation (2) CHF (congestive heart failure) Current Visit: Yes Status: Acute Assessment and plan: Decrease diuresis to 20 mg IV daily. Patient diuresed well. I took him off oxygen this morning while is in the room and he maintained his sats and 94-95%. Cardiology is following. Echocardiogram with severe mitral regurgitation as well as ejection fraction of 30-35%. left heart catheterization today. O2 support as needed. Monitor I&O's. Qualifiers: Heart failure type: unspecified Heart failure chronicity: acute Qualified Code(s): I50.9 - Heart failure, unspecified (3) DVT prophylaxis Current Visit: Yes Status: Acute Assessment and plan: On Lovenox therapeutic dose. - Subjective Interval history: Patient was seen and examined. Left heart catheterization plan was not done yesterday as the patient's heart rate was uncontrolled. There is plans were to be done today. Off Cardizem drip. Heart rate is in the 80s to 90s still in A. fib. On 2 L nasal cannula. Shortness of breath is better. No chest pain. Afebrile. The patient was admitted with A. fib with RVR and found to have evidence of congestive heart failure. Has been diuresed with 20 mg IV Lasix. - Constitutional Vitals: Temp Pulse Resp BP Pulse Ox 97.8 F 90 16 106/64 95 07/08/17 07:01 07/08/17 07:01 07/08/17 07:01 07/08/17 07:01 07/08/17 07:01 General appearance: Present: A&O X 3 Exam: GEN: NAD CVS: irregular,. S1, S2, No m/r/g RESP: CTAB ABD: Soft, NT, ND, +BS EXT: No edema. 2+ DP. No rashes NEURO: Nonfocal Internal Medicine: Result - Labs CBC & Chem 7: 07/08/17 05:17 07/08/17 05:17 Labs: Short CBC 07/08/17 Range/Units 05:17 WBC 5.9 (4.3-11.1) K/mcL Hgb 12.2 L (12.9-16.9) g/dL Hct 37.9 (37.5-50.1) % Plt Count 263 (140-400) K/mcL BMP 07/08/17 05:17 Sodium 134 L Potassium 4.1 Chloride 101 Carbon Dioxide 26 BUN 21 Creatinine 1.07 Glucose 98 Calcium 8.6 Consult Discharge Plan - Plan Referrals: Vance Judge Jr, MD [Primary Care Provider] - 07/11/17 2:30 pm (web request sent on 07/05/17)
--- NOTE | 2017-07-08 11:59 | Event Note ---
Date of Encounter: 07/08/17 Time of Encounter: 09:00 - Cardiology Event Note HR better controlled today with digoxin. Plan for LHC today for new cardiomyopathy. Risks versus benefits of LHC explained to patient and family. Patient states understanding and agrees with plan. Further recommendations pending LHC.
[2017-07-08] MEDS ORDERED: *HR* Heparin 10,000 UNIT/10 ML VIAL ONE (13:41)
[2017-07-08] MEDS ORDERED: 0.9 % Sodium Chloride 1,000 ML ONE ×2 (13:41→14:00)
[2017-07-08] MEDS ORDERED: Heparin 1,000 UNITS/500 mL 500 ML ONE (13:41)
[2017-07-08] MEDS ORDERED: Nitroglycerin 1,000 MCG/10 ML VIAL IV ONE (13:42)
[2017-07-08] MEDS ORDERED: ISOVUE-370 200 ML INFUS..BTL IV ONE (13:50)
--- NOTE | 2017-07-08 13:50 | Pre-Sedation Evaluation ---
Pre-sedation evaluation - Pre-sedation checklist Date of procedure: 07/08/17 Procedure: Cardiac Catheterization Recent Vitals: Last Vital Signs Temp 98.1 F 07/08/17 11:55 Pulse 88 07/08/17 11:55 Resp 16 07/08/17 11:55 BP 108/73 07/08/17 11:55 Pulse Ox 95 07/08/17 11:55 H&P (including ROS) documented in medical record: Yes Previous reaction to sedatives/anesthetics: Unknown Dietary Status: NPO after Midnight Airway Assessment: Patient can open mouth completely, TMJ function normal, Micrognathia (under-bite, receding chin) absent, Neck with adequate range of motion Dentition: No loose teeth or bridges Possible difficult airway: No ASA Classification *see protocol: CLASS II-Mild systemic disease Plan of Care: Pt appropriate candidate for procedure/moderate/conscious sedation , Risks/benefits of procedure/sedation discussed w/ patient/family
[2017-07-08] MEDS ORDERED: *HR* Midazolam HCl 2 MG/2 ML VIAL ONE (14:00)
[2017-07-08] MEDS ORDERED: *HR* FentaNYL (PF) 100 MCG/2 ML VIAL ONE (14:00)
--- NOTE | 2017-07-08 15:16 | Invasive Diagnostic Lab Proc ---
Name: Abel Ferraro Date of Study: 07/08/2017 Date: 1935 Ht: 68.0in Medical Record#: [id number] Age: 81 Wt: 136.25lb Gender: Male BSA: 1.74 Order #: [id number] BMI: 20.72 Physicians Procedure Physician: Ninfa Guidry MD, [facility] Referring MD: Referring MD: Staff Name Position Time In Pastora Baker RT (R) Monitor 02:00 PM Debo Patricia RT (R) Scrub 02:58 PM Eden Ro RN Cant Gang Sawyer 02:00 PM Indications Indication Cardiomyopathy Non-Stemi Procedures Performed Procedure L HRT ARTERY/VENTRICLE ANGIO Pre-Procedure Checklist Informed consent is complete signed and on chart. H&P is on chart. ID band is on and ID verified with patient. Patient NPO for procedure The procedure was described for the patient and questions were answered. Blood Pressure: 98/62 ECG is on chart. Plan of Care Patient will tolerate the procedure without complications. Adequate level of comfort will be maintained. Hemodynamics will remain stable Patient will recover from procedure without complications. Respiratory function will be maintained. Cardiac rhythm will remain stable. Patient temperature will be maintained. Patient and/or family have verbalized understanding of the procedure. Patient Education Chief Complaint/Reason for Test: Cardiac Cath Developmental Category: Geriatric (65+ years) Developmentally Appropriate for Age: Yes Learning Barriers: None Education Needs: Procedure Education Method: Verbal Information Taught: Cardiac Cath Educational Evaluation: Able to repeat information Intravenous Access Time IV Size Location DC'd Fluid/Drip Rate Units RN 01:56 PM 18g 1 04/17" Patent On Arrival Lt Arm 0.9NaCl 25 ml/hr Eden Ro RN Allergies aspirin No Known Allergies Vital Signs Time BP (mmHg) HR (bpm) O2 Sat. RR (bpm) LOC 01:56 PM 98 / 62 96 94 % 16 5 = Fully awake and oriented or at pre-proc level 02:24 PM 122 / 77 85 97 % 20 02:29 PM 118 / 73 100 98 % 16 02:35 PM 110 / 70 103 96 % 21 02:39 PM 104 / 65 80 96 % 13 02:44 PM 114 / 62 87 95 % 11 02:49 PM 106 / 68 114 89 % 23 02:54 PM 116 / 77 104 97 % 21 Procedural Medications Time Medication Dose Units Method Given By 02:39 PM Lidocaine 2% 9 ml Subcutaneous Ninfa Guidry MD, FACC 02:25 PM Oxygen 2 L/min nasal cannula Eden Ro RN 02:26 PM Versed 1 mg Intravenous Eden Ro RN 02:26 PM Fentanyl 25 mcg Intravenous Eden Ro RN Tasha Score Preprocedure Postprocedure Activity 2- Moves 4 extremities sustained head lift Activity 2- Moves 4 extremities sustained head lift Circulation 2- SBP +/= 20 points of pre-anesthetic level Circulation 2- SBP +/= 20 points of pre-anesthetic level Consciousness 2- Awake and alert oriented x 3 Consciousness 2- Awake and alert oriented x 3 O2 Saturation 2- Able to maintain O2 satruation of 92% on room air O2 Saturation 2- Able to maintain O2 satruation of 92% on room air Respiratory 2- Able to deep breathe and cough well Respiratory 2- Able to deep breathe and cough well Total Score 10 Total Score 10 Contrast Agent: Isovue Diagnostic Contrast: 53 ml Total Contrast: 53 ml Fluoro Dose: 76 mGy Procedure Log Time Note Enter By 01:56 PM CathStat 02:00 PM Pt arrived to landscape laborer 2 at 14:00 02:00 PM Eden Ro RN Position: Cant Gang Sawyer Time in: 14:00 02:00 PM Pastora Baker RT (R) Position: Monitor Time in: 14:00 dsp 02:00 PM Patricia Edmondson RT (R) Position: Scrub Time in: 14:00 dspell 02:02 PM Patient charges- Angio tray pack, Navilyst 3mm J, Pulse Oximetry and ACIST tubing and transducer 02:02 PM IV Supplies used: J loop Angio Cath. 02:05 PM Case Delayed no 02:10 PM Hair removed from procedure site in procedure lab using clippers. Bilateral groin prepped with Chloraprep by Eden Ro RN, then patient was draped. Skin intact. 02:20 PM Physician arrived 14:20 02:20 PM Meet and greet completed 02:20 PM Sign in performed according to hospital policy. ell 02:21 PM Procedure start 14:21 dspell 02:22 PM Case Start 02:24 PM Vitals capture started with the following parameters, Patient=Adult, Interval=5 min, Initial Eujlrxqa=921 mmHg, Deflation Rate=3 mmHg, Cuff placed on Right Arm 02:24 PM HR=85 bpm, IKIB=756/77 mmhg, SpO2=97.0 %, Resp=20 B/min, Comment=A-Fib 02:25 PM Time: 14:25 Oxygen on at 2 L/min per nasal cannula by Eden Ro RN matteo 02: PM Time: 14:26 Fentanyl 25 mcg Intravenous Given by Eden Ro RN 02: PM Time: 14:26 Versed 1 mg Intravenous Given by Eden Ro RN matteo 02:29 PM SR=354 bpm, BZHH=273/73 mmhg, SpO2=98.0 %, Resp=16 B/min, Comment=A-Fib 02:35 PM KW=866 bpm, QVOV=156/70 mmhg, SpO2=96.0 %, Resp=21 B/min, Comment=A-Fib 02:39 PM Clinical Presentation: Unstable angina 02:39 PM Time out performed according to hospital policy 02:39 PM Time: 14:39 9 ml Lidocaine 2% to right groin Subcutaneous Given by Ninfa Guidry MD, [facility] ell 02:39 PM Access obtained by percutaneous puncture. 5Fr 10cm Terumo Concord sheath placed in right Femoral artery. [id number] dspell 02:39 PM 5Fr FL 4 catheter inserted over the wire [facility] ell 02:39 PM HR=80 bpm, WNVH=800/65 mmhg, SpO2=96.0 %, Resp=13 B/min, Comment=A-Fib 02:39 PM 0.035 145cm Navilyst 3mmJ wire [id number] dspell 02:39 PM LCA angiography performed in multiple views. dspell 02:40 PM Catheter removed dspell 02:40 PM 5Fr FR 4 catheter inserted over the wire [facility] dspell 02:42 PM RCA angiography performed in multiple views. dspell 02:42 PM Catheter removed dspell 02:42 PM 5Fr Pigtail catheter inserted over the wire [facility] dspell 02:43 PM Catheter selectively placed in left ventricle dspell 02:43 PM Bolus angiogram of left Ventricle complete: 8 ml/sec for a total of 24 mls dspellman 02:43 PM Pressure channel 1 zeroed. 02:44 PM Recorded Pressure: LV, HR=88, Condition=Condition 1 (Left Ventricle) LV 60/3/10 02:44 PM Recorded Pressure: LV, Ao, HR=86, Condition=Condition 1 (Left Ventricle) LV 74/19/28, (Aorta) Ao 76/56/67 02:44 PM HR=87 bpm, RXSU=267/62 mmhg, SpO2=95.0 %, Resp=11 B/min, Comment=A-Fib 02:45 PM Catheter removed dspell 02:45 PM Bolus angiogram of right Femoral complete: 4 ml/sec for a total of 7 mls dspellman 02:45 PM Coronary Dominance: right dspellman 02:46 PM Procedure completed at 14:46 dspellman 02:46 PM Did you address LEONEL flow and Dominance? Yes dspell 02:46 PM Sign out completed: Radiation Dose 76.84 mGy Fluoro Time: 1.3 Isovue 370 - 200ml contrast 53 ml given by Ninfa Guidry MD, [facility]. Complications: NoneCardiac Rehab Consult needed: NoConfirmed administered medications: Yes dspellman 02:46 PM Isovue 370 - 200ml,1 Bottle(s) used. dspellman 02:47 PM Arterial sheath pulled, Mynx closure device used and was Successful [id number] S/N. dspellman 02:47 PM Estimated Blood Loss: minimal dspellman 02:47 PM Post ECG Atrial Fibrillation dspellman 02:48 PM Post Blood Pressure 114/62 dspellman 02:48 PM 14:48 Post Pulses Bilateral DP 2+ dspellman 02:49 PM 14:49 Post Pulses Rt PT 1+ dspellman 02:49 PM 14:49 Post Pulses Lt PT 2+ dspellman 02:49 PM GS=875 bpm, XCWA=449/68 mmhg, SpO2=89.0 %, Resp=23 B/min, Comment=A-Fib 02:50 PM Information taught Cardiac Cath and Mynx dspell 02:50 PM Education needs Procedure, Plan of Care, and Responsibilities of Patient in Care dspell 02:50 PM Learning barriers :None dspellman 02:50 PM Education Methods Verbal dspellman 02:50 PM Education evaluation Able to repeat information dspellman 02:51 PM Site status No bleeding/hematoma - Rt Groin as reported by Patricia Edmondson RT (R) at 14:50 dspellman 02:53 PM Site status No bleeding/hematoma - Rt Groin as reported by Patricia Edmondson RT (R) at 14:53 dspellman 02:53 PM Opsite applied dspellman 02:54 PM Delay to floor No dspellman 02:54 PM Family placed in consult room. dspellman 02:54 PM Complications: None dspellman 02:54 PM Fluoro Time: 1.3 dspell 02:54 PM VR=396 bpm, WDIS=278/77 mmhg, SpO2=97.0 %, Resp=21 B/min, Comment=A-Fib 02:54 PM Isovue 370 - 200ml contrast [address] Ninfa Guidry. dspell 02:55 PM Radiation Dose 76.48 mGy dspellman 02:56 PM Report given to Marilynn MORENO Pt taken to 2A Room #48. 14:55 dspellman 02:56 PM Patient out of room: 14:56 dspellman 03:05 PM Lesion found in Proximal LAD. Pre Stenosis: 20 Pre LEONEL Flow: 3: Complete and Brisk Flow/Perfusion dspellman 03:05 PM Lesion found in Proximal Circumflex. Pre Stenosis: 15 Pre LEONEL Flow: 3: Complete and Brisk [facility] Complications Complication None None Hemodynamics Pressures Site Systolic/A Wave Diastolic/V Wave Mean LV 60 3 10 LV 74 19 28 AO 76 56 67 Post Procedure Information Blood Pressure: 114/62 mmHg Rhythm: Atrial Fibrillation Post procedural instructions were given Closure Device Time Device Success/Fail 07/08/2017 2:57:00 PM MynxGrip Successful Site Checks Time Location Status Staff Sheath In? Note 02:50 PM Rt Groin No bleeding/hematoma Patricia Edmondson RT (R) 02:53 PM Rt Groin No bleeding/hematoma Patricia Edmondson RT (R) Pulses Time Site Pre-Procedure Post-Procedure Note 07/08/2017 1:56:00 PM Rt PT 1+ 07/08/2017 2:04:00 PM Bilateral radial 2+ 07/08/2017 2:04:00 PM Lt DP/PT 2+ 07/08/2017 2:04:00 PM Rt DP 2+ 2:48:00 PM Bilateral DP 2+ 2:49:00 PM Rt PT 1+ 2:49:00 PM Lt PT 2+ Updated by Pastora Baker RT (R) on 07/08/2017 3:08:28 PM Pastora Baker RT electronically signed on 07/08/2017 3:09:28 PM with status of Final
[2017-07-08] MEDS ORDERED: Warfarin perPT PO PRN (18:00)
[2017-07-08 18:38] LABS: Prothrombin Time 11.2 Seconds (9.4-12.1)
[2017-07-08] MEDS ORDERED: *HR* Warfarin 2.5 MG TABLET PO ONE (18:46)
--- NOTE | 2017-07-08 19:46 | Electrocardiograph Report ---
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
[2017-07-09] MEDS: *HR* Enoxaparin 80 MG/0.8 ML SYRINGE SQ SCH ×2 (05:35→16:38)
[2017-07-09 06:41] LABS: Basophils % 0.7 %; Eosinophils # 0.3 K/mcL (0.0-0.6); Eosinophils % 5.2 %; Hematocrit 37.5 % (37.5-50.1); Hemoglobin 12.4 g/dL (12.9-16.9); Immature Granulocytes % 0.2 % (0-4); Lymphocytes # 1.6 K/mcL (0.6-4.6); Lymphocytes % 28.8 %; Mean Corpuscular HGB Conc 33.1 g/dL (31.6-35.5); Mean Corpuscular Hemoglobin 29.9 pg (28.0-33.3); Mean Corpuscular Volume 90.4 fL (83.0-100.0); Mean Platelet Volume 9.9 fL (9.4-12.4); Monocytes # 0.5 K/mcL (0.0-1.3); Monocytes % 8.6 %; Neutrophils # 3.1 K/mcL (1.6-8.9); Platelet Count 264 K/mcL (140-400); Red Blood Count 4.15 M/mcL (4.19-5.50); Red Cell Distribution Width 12.8 % (11.5-14.5); Segmented Neutrophils % 56.5 %
[2017-07-09 06:48] LABS: BUN/Creatinine Ratio 19 (6-26); Blood Urea Nitrogen 18 mg/dL (8-23); Calcium 8.5 mg/dL (8.6-10.3); Carbon Dioxide 25 mEq/L (23-29); Chloride 103 mEq/L (98-107); Glucose 100 mg/dL (70-105); Magnesium 2.2 mg/dL (1.6-2.6); Osmolality,Calculated 280 (280-300); Potassium 4.3 mEq/L (3.5-5.1); Sodium 134 mEq/L (136-145); eGFR For African Americans > 60 (> 60); eGFR For Non-African Americans > 60 (> 60)
[2017-07-09 06:49] LABS: INR 1.1; Prothrombin Time 11.5 Seconds (9.4-12.1)
[2017-07-09] MEDS: *HR* Digoxin 0.125 MG TABLET PO SCH (08:25)
[2017-07-09] MEDS: Multivit/Ca/Min/Fe/FA 1 TAB TABLET PO SCH (08:25)
[2017-07-09] MEDS: Aspirin Enteric Coated 81 MG Tablet PO SCH (08:25)
[2017-07-09] MEDS: Metoprolol XL (24 HR) Succ 25 MG TAB.ER.24H PO SCH (08:25)
[2017-07-09] MEDS ORDERED: Furosemide 20 MG TABLET PO SCH (09:00)
--- NOTE | 2017-07-09 11:02 | Discharge Summary ---
Orders not resulted at time of discharge: Pending orders 07/10/17 04:00 PT/INR [Prothrombin Time INR] [COAG] AM 0400 07/11/17 04:00 PT/INR [Prothrombin Time INR] [COAG] AM 0400 07/12/17 04:00 PT/INR [Prothrombin Time INR] [COAG] AM 0400 Date of Encounter: 07/09/17 Time of Encounter: 10:56 - Discharge Diagnosis (1) Atrial fibrillation Priority: Primary Status: Acute Qualifiers: Atrial fibrillation type: unspecified Qualified Code(s): I48.91 - Unspecified atrial fibrillation (2) CHF (congestive heart failure) Priority: Primary Status: Acute Qualifiers: Heart failure type: unspecified Heart failure chronicity: acute Qualified Code(s): I50.9 - Heart failure, unspecified Hospital course: Mr. Ferraro is a 81 year old male PMH of arthritis and COPD who presented to [facility] with a 7-10 day history of worsening dyspnea and fatigue. He was recently seen at [facility] ED and found to be in atrial fibrillation with RVR. ED workup shows atrial fibrillation with RVR rate of 150s. EKG with no ST or T-wave changes. Chest x-ray reveals pulmonary edema, his BNP is 596 and his troponin is 0.03. Patient was admitted due to new onset of congestive heart failure and atrial fibrillation. The patient was diuresed and cardiology was consulted. An echocardiogram came back showing severe mitral regurgitation with an ejection fraction of 30-35%. The patient underwent a left heart catheterization which showed mild atherosclerotic coronary artery disease. EF was 30% on the left heart catheterization. The patient initially was put on Cardizem drip however we had issues with his blood pressure. Eventually the patient was put on a beta lisa as well as digoxin. Regarding his atrial fibrillation he was recommended anticoagulation with Lovenox and bridging to Coumadin. This was chosen given his severe MR. It is suspected the patient's cardiomyopathy is secondary to tachycardia and the patient will follow-up with cardiology for repeat echo in 3 months. He is started on aspirin, beta lisa , statin, JUDITH inhibitor, Lasix, digoxin, Lovenox with Coumadin bridging. The patient was stable for discharge on 07/09. - Time Spent with Patient Total time spent providing and/or coordinating discharge services: Greater than 30 minutes - Discharge Medications Prescriptions: Enoxaparin [Lovenox] 70 mg SQ Q12HR #14 syringe Aspirin Enteric Coated [Aspirin EC] 81 mg PO DAILY #30 tablet. Atorvastatin [Lipitor] 40 mg PO HS #30 tablet Digoxin [Lanoxin] 0.125 mg PO DAILY #30 tablet Furosemide [Lasix] 20 mg PO DAILY #30 tablet Lisinopril [Zestril] 2.5 mg PO DAILY #30 tablet Metoprolol XL (24 HR) Succ [Toprol Xl] 12.5 mg PO DAILY #30 tab.er.24h Warfarin [Coumadin] 3 mg PO DAILY #60 tablet Home Medications: Doxazosin [Cardura] 8 mg PO HS 05/14/15 [History] Mv-Min/Vit C/Glut/Rhea AC/Hc124 [Airborne Tablet Chewable] 1 tab PO DAILY [History] Omeprazole [PriLOSEC] 20 mg PO DAILY 06/16/17 [History] Aspirin Enteric Coated [Aspirin EC] 81 mg PO DAILY #30 tablet. 07/09/17 [Rx] Atorvastatin [Lipitor] 40 mg PO HS #30 tablet 07/09/17 [Rx] Digoxin [Lanoxin] 0.125 mg PO DAILY #30 tablet 07/09/17 [Rx] Enoxaparin [Lovenox] 70 mg SQ Q12HR #14 syringe 07/09/17 [Rx] Furosemide [Lasix] 20 mg PO DAILY #30 tablet 07/09/17 [Rx] Lisinopril [Zestril] 2.5 mg PO DAILY #30 tablet 07/09/17 [Rx] Metoprolol XL (24 HR) Succ [Toprol Xl] 12.5 mg PO DAILY #30 tab.er.24h 07/09/17 [Rx] Warfarin [Coumadin] 3 mg PO DAILY #60 tablet 07/09/17 [Rx] Allergies/Adverse Reactions: 3 Allergy/AdvReac Type Severity Reaction Status Date / Time aspirin Allergy Hypertensio Verified 06/16/17 07:32 n Date of admission: 07/06/17 13:51 Primary care physician: Vance Judge Jr, MD - Constitutional Vitals: Temp Pulse Resp BP Pulse Ox 97.8 F 69 18 129/65 92 07/09/17 07:10 07/09/17 08:23 07/09/17 07:10 07/09/17 08:23 07/09/17 07:10 General appearance: Present: A&O X 3 - Patient Status Disposition: Home, Self-Care Condition: Fair Overall status at discharge: patient is progressing back to baseline - Discharge Instructions Instructions: Warfarin (By mouth), Enoxaparin (Injection), Atrial Fibrillation (DC) Follow Up With: Gabriel Gamble [Other] - 07/15/17 2:30 pm (Your first appointment will last 45mins-1hr. Please bring a photo id, insurance card, and a list of all home medications) Vance Judge Jr, MD [Primary Care Provider] - 07/11/17 2:30 pm (Please have your PCP check you PT/INR during this visit) Lupillo Patrick, [Partnered Physician] - (office will call you with a follow up appointment ) - Diet and Activity Activity: increase activity as tolerated Diet: low salt diet
--- NOTE | 2017-07-09 11:33 | Cardiology Progress Note ---
Date of Encounter: 07/09/17 Time of Encounter: 10:00 Assessment and Plan (1) Atrial fibrillation Current Visit: Yes Status: Acute Per cardiology: -Upon admission noted to be a.fib RVR, HR 144. -ON toprol 12.5mg daily and digoxin 0.125mg daily. -Average HR previous 12 hours noted to be 88, a.fib. -[id number] score 3(age, CHF). Currently on therapeutic lovenox and coumadin. -Echo with LVEF 30-35%, severe MR. -Avoid CCB with cardiomyopathy. -Patient now with HR controlled. Referral for coumadin clinic sent. INRs will be monitored by [facility] until seen by coumadin clinc. -Per discussion with , recommend bridging to coumadin with lovenox. -Cardiology will sign off and will follow in outpatient setting. Follow up set. 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 -Euvolemic on exam. -TTE with LVEF 30-35%, global hypokinesis, moderately dilated left atrium, severe MR. -On lasix oral. -On beta lisa and michelet inhibitor. -[facility] with mild CAD. -CHF education reviewed with patient and at length. -Plan to repeat TTE in 3 months to re-evalaute LVEF. -Will continue to monitor in outpatient setting. Qualifiers: Heart failure type: unspecified Heart failure chronicity: acute Qualified Code(s): I50.9 - Heart failure, unspecified (3) Severe mitral regurgitation Current Visit: Yes Status: Acute Per cardiology: -Severe MR noted per TTE. -Per discussion with , will re-assess with repeat TTE in outpatient setting. Discussion w patient/family: The assessment and plan as outlined above was discussed with the patient and/or family members who expressed understanding and agreement. All questions were answered. Thank you for involving us in the care of your patient. Please call with any questions. Discussed and reviewed with Subjective Principal diagnosis: CHF, a.fib RVR Interval history: Patient states he feels good this morning. Denies issues walking or using right leg. Denies shortness of breath. Objective Vital Signs, Last 4 Hours Temp Pulse Resp BP Pulse Ox 07/09/17 11:21 97.8 F 97 17 99/58 92 07/09/17 08:23 69 129/65 General: Conversant, No Apparent Distress HEENT: Atraumatic, Normocephaly, Mucus Membranes Moist Neck: No JVD, Normal carotid pulses Cardiac: Normal S1 and S2, No Murmur, Other (Irregulalry irregular) Lungs: Normal Breath Sounds, No Wheeze, Rales, Rhonchi Neuro: Alert and responsive, No focal deficits noted Abdomen: Soft, Non-Tender Skin: No rashes noted on visualized skin, Other (Right groin access site without hematoma or ecchymosis. ) Musculoskeletal: No Chest Wall Tenderness Extremities: No Clubbing, No Cyanosis, No Edema, Normal Pulses Results 07/09/17 06:05 07/09/17 06:05 Lab Results Active Medications Albuterol/Ipratropium (Duoneb) 3 ml IH [id number] PRN; Protocol PRN Reason: Shortness Of Breath/Wheezing Stop: 01/03/18 17:51 Aspirin (Aspirin Ec) 81 mg PO DAILY [facility] Stop: 01/05/18 14:46 Last Admin: 07/09/17 08:25 Dose: 81 mg Atorvastatin Calcium (Lipitor) 40 mg PO HS [facility] Stop: 01/05/18 21:01 Last Admin: 07/08/17 22:07 Dose: 40 mg Digoxin (Lanoxin) 0.125 mg PO DAILY [facility] Stop: 01/07/18 09:01 Last Admin: 07/09/17 08:25 Dose: 0.125 mg Doxazosin Mesylate (Cardura) 8 mg PO HS [facility] Stop: 01/03/18 21:01 Last Admin: 07/07/17 21:02 Dose: Not Given Enoxaparin Sodium (Lovenox) 70 mg 1 mg/kg (70 mg) SQ Q12HR [facility] PRN Reason: Protocol Stop: 01/03/18 16:01 Last Admin: 07/09/17 05:35 Dose: 70 mg Furosemide (Lasix) 20 mg PO DAILY [facility] Stop: 01/08/18 09:01 Last Admin: 07/09/17 08:25 Dose: 20 mg Lisinopril (Zestril) 2.5 mg PO DAILY [facility] PRN Reason: Protocol Stop: 01/08/18 09:01 Last Admin: 07/09/17 08:25 Dose: 2.5 mg Metoprolol Succinate (Toprol Xl) 12.5 mg PO DAILY [facility] Stop: 01/05/18 10:46 Last Admin: 07/09/17 08:25 Dose: 12.5 mg Multivitamins/Calcium (Thera M Plus) 1 tab PO DAILY [facility] Stop: 01/04/18 09:01 Last Admin: 07/09/17 08:25 Dose: 1 tab Naloxone HCl (Narcan) 0.4 mg IVP Q2MIN PRN PRN Reason: SEE COMMENTS Stop: 01/03/18 15:02 Omeprazole (Prilosec) 20 mg PO DAILY [facility] PRN Reason: Protocol Stop: 01/04/18 09:01 Last Admin: 07/09/17 08:25 Dose: 20 mg Warfarin Sodium (Coumadin Perpt) 1 each PO DAILY@1800 PRN PRN Reason: SEE COMMENTS Stop: 01/07/18 18:01 Warfarin Sodium (Coumadin) 2.5 mg PO ONCE ONE Stop: 07/09/17 18:01 Laboratory Tests 07/09/17 07/09/17 07/09/17 06:05 06:05 06:05 Hgb 12.4 L INR 1.1 Creatinine 0.95 - Imaging and Cardiology Chest Xray: report reviewed Echo: report reviewed Cardiac cath: report reviewed - EKG Interpretation EKG results cardiology: other (Telemetry reviewed with average HR previous 12 hours noted to be 88, atrial fibrillation. PVCs and couplets noted.) Consult Discharge Plan - Plan Instructions: Warfarin (By mouth), Enoxaparin (Injection), Atrial Fibrillation (DC) Referrals: Vance Judge Jr, MD [Primary Care Provider] - 07/11/17 2:30 pm (web request sent on 07/05/17) Lupillo Patrick DO [Partnered Physician] - (1-2 weeks) Prescriptions: Enoxaparin [Lovenox] 70 mg SQ Q12HR #14 syringe Aspirin Enteric Coated [Aspirin EC] 81 mg PO DAILY #30 tablet. Atorvastatin [Lipitor] 40 mg PO HS #30 tablet Digoxin [Lanoxin] 0.125 mg PO DAILY #30 tablet Furosemide [Lasix] 20 mg PO DAILY #30 tablet Lisinopril [Zestril] 2.5 mg PO DAILY #30 tablet Metoprolol XL (24 HR) Succ [Toprol Xl] 12.5 mg PO DAILY #30 tab.er.24h Warfarin [Coumadin] 3 mg PO DAILY #60 tablet
[2017-07-09 15:58] VITALS: BP 104/66
[2017-07-09] MEDS ORDERED: *HR* Warfarin 2.5 MG TABLET PO ONE (18:00)
== END 2017-07-09 17:21 | disposition home or self-care (01) | DRG 286 ==
LOC: 2ANU 12:46 → EMEROO 12:46 → 2ANU 16:07
PROVIDERS: ADMIT Internal Medicine; ATTEND Internal Medicine

== ENCOUNTER 2017-08-05 18:38 | Observation (INO) ==
--- NOTE | 2017-08-05 19:12 | Emergency Department Note ---
Disposition Clinical Impression: Visual changes, Dizziness Disposition: Admitted As Inpatient Condition: Good Time of Disposition: 21:20 General Adult HPI - General Chief complaint: ED Neuro Symptoms/Deficit Stated complaint: tremors, vision changes Time Seen by Provider: 08/05/17 18:59 Source: patient, family Mode of arrival: ambulatory Limitations: no limitations Nursing Notes Reviewed: Yes Vital Signs Reviewed: Yes - History of Present Illness HPI Narrative: Patient is an 81-year-old male that presents the emergency department for visual changes in tremor. He states that this began at approximately 3 PM this afternoon. Patient states that right before this event someone fell on their porch and he became very stressed. States that he noticed visual changes in his lower visual bedolla as well as bilateral tremor. He states that the tremor has resolved but is still having some changes to his vision. Patient denied any numbness, weakness or tingling. Pain Scale: 0 - Related Data Home Medications Medication Instructions Recorded Confirmed Doxazosin [Cardura] 8 mg PO HS 05/14/15 08/05/17 Mv-Min/Vit C/Glut/Rhea AC/Hc124 1 tab PO DAILY 06/16/17 08/05/17 [Airborne Tablet Chewable] Previous Rx's Medication Instructions Recorded Aspirin Enteric Coated [Aspirin EC] 81 mg PO DAILY #30 tablet. 07/09/17 Atorvastatin [Lipitor] 40 mg PO HS #30 tablet 07/09/17 Digoxin [Lanoxin] 0.125 mg PO DAILY #30 tablet 07/09/17 Furosemide [Lasix] 20 mg PO DAILY #30 tablet 07/09/17 Lisinopril [Zestril] 2.5 mg PO DAILY #30 tablet 07/09/17 Metoprolol XL (24 HR) Succ [Toprol 12.5 mg PO DAILY #30 tab.er.24h 07/09/17 Xl] Warfarin [Coumadin] 3 mg PO DAILY #60 tablet 07/09/17 Allergies Allergy/AdvReac Type Severity Reaction Status Date / Time No Known Allergies Allergy Verified 08/05/17 21:18 All systems ED: reviewed and negative except as stated. Constitutional: Denies: fever, chills Eyes: Reports: vision change Cardiovascular: Denies: chest pain Respiratory: Denies: dyspnea Gastrointestinal: Denies: abdominal pain, nausea, vomiting, diarrhea Genitourinary: Denies: urgency, dysuria, frequency Neurological: Reports: other (tremor). Denies: headache, weakness, numbness, paresthesias Past Medical History - Past Medical History Medical history: Reports: arthritis, CHF, hyperlipidemia, hypertension, other Surgical history: Reports: herniorrhaphy, vasectomy Psychiatric history: Reports: no psych history - Social History Smoking Status: Never smoker Smokeless Tobacco Status: No Alcohol use: Reports: none Drug use: Reports: none Physical Exam - General Limitations: no limitations General appearance: alert, in no apparent distress - Head Head exam: atraumatic, normocephalic - Eye Eye exam: Present: normal appearance, EOMI - Neck Neck exam: Present: normal inspection, full ROM, trachea midline - Respiratory Respiratory exam: Present: normal lung sounds bilaterally. Absent: respiratory distress, wheezes - Cardiovascular Cardiovascular exam: Present: irregular rhythm, normal heart sounds, +S1, +S2 - Abdominal Exam Abdominal exam: Present: soft, Non-Tender, normal bowel sounds - Neurological Exam Neurological exam: Present: alert, oriented X3 - Expanded Neurological Exam Speech: Present: fluid speech Cranial nerves: EOM function (II, III, IV, ): Normal, facial sensation (V): Normal, facial palsy (VII): Abnormal Left (Left sided facial droop that is chronic), gag reflex (IX): Normal, spinal accessory function (XI): Normal, tongue deviation (XII): Normal Cerebellar function: finger to nose: Normal, heel to garzon: Normal Motor strength - LUE: 5/5 Motor strength - RUE: 5/5 Motor strength - LLE: 5/5 Motor strength - RLE: 5/5 Upper motor neuron exam: pronator drift: Absent bilaterally Sensory exam upper extremity: light touch: Normal Sensory exam lower extremity: light touch: Normal Coma Scale Eye Opening: Spontaneous Coma Scale Motor Response: Obeys Commands Coma Scale Verbal Response: Oriented Coma Scale Total: 15 - Psychiatric Psychiatric exam: Present: normal affect, normal mood - Skin Skin exam: Present: warm, dry, intact Course Vital Signs Temperature 98.0 F 08/05/17 18:41 Pulse Rate 86 08/05/17 18:41 Respiratory Rate 16 08/05/17 18:41 Blood Pressure 102/60 08/05/17 18:41 O2 Sat by Pulse Oximetry 96 08/05/17 18:41 Temperature 98.0 F 08/05/17 18:44 Pulse Rate 60 08/05/17 20:12 Respiratory Rate 13 08/05/17 20:12 Blood Pressure 89/50 08/05/17 20:12 O2 Sat by Pulse Oximetry 94 08/05/17 20:12 Oxygen Delivery Oxygen Delivery Room Air Medical Decision Making - MDM Narrative Medical decision making narrative: Due the patient presented with visual changes and tremor we will obtain liver tests including CBC, CMP, coags, urinalysis, digoxin and a CT scan of the head to rule out possible intracranial abnormality. Patient does have a mild anemia at 11.6. The patient's digoxin level is 1.0. This is within normal limits I do not feel that the patient has an acute toxicity at this time. The remainder of his laboratory testing is unremarkable. The CT scan of the head did not show any acute intracranial abnormalities. Patient visual acuity was 20/40 bilaterally. However due to the patient having persistent visual changes a feel that is necessary that the patient be admitted to the hospital for further evaluation and management. I called and spoke with the admitting hospitalist and they have accepted the patient to their service. Patient will be admitted to the hospital this time for further evaluation and management. - Medical Records Medical records reviewed: Yes I reviewed the patient's medical records. - Lab Data Lab results reviewed: Yes I reviewed the patient's lab results. Result diagrams: 08/05/17 19:17 08/05/17 19:17 Lab Results 08/05/17 08/05/17 08/05/17 Range/Units 19:17 19:17 19:17 WBC 5.8 (4.3-11.1) K/mcL RBC 3.94 L (4.19-5.50) M/mcL Hgb 11.6 L (12.9-16.9) g/dL Hct 35.3 L (37.5-50.1) % MCV 89.6 (83.0-100.0) fL MCH 29.4 (28.0-33.3) pg MCHC 32.9 (31.6-35.5) g/dL RDW 12.5 (11.5-14.5) % Plt Count 185 (140-400) K/mcL MPV 9.7 (9.4-12.4) fL Immature Gran % 0.2 (0-4) % Seg Neutrophils % 48.3 % Lymphocytes % 39.2 % Monocytes % 7.3 % Eosinophils % 4.5 % Basophils % 0.5 % Neutrophils # 2.8 (1.6-8.9) K/mcL Lymphocytes # 2.3 (0.6-4.6) K/mcL Monocytes # 0.4 (0.0-1.3) K/mcL Eosinophils # 0.3 (0.0-0.6) K/mcL Basophils # 0.0 (0.0-0.2) K/mcL PT 23.2 H (9.4-12.1) Seconds INR 2.1 Sodium 136 (136-145) mEq/L Potassium 4.9 (3.5-5.1) mEq/L Chloride 104 (98-107) mEq/L Carbon Dioxide 28 (23-29) mEq/L BUN 21 (8-23) mg/dL Creatinine 1.09 (0.70-1.30) mg/dL Est GFR ( Amer) > 60 (> 60) Est GFR (Non-Af Amer) > 60 (> 60) BUN/Creatinine Ratio 19 (6-26) Glucose 128 H (70-105) mg/dL POC Glucose (70-99) mg/dL Calculated Osmolality 287 (280-300) Calcium 9.0 (8.6-10.3) mg/dL Total Bilirubin 0.4 (0.3-1.0) mg/dL AST 20 (13-39) Units/L ALT 23 (7-52) Units/L Alkaline Phosphatase 53 (34-104) Units/L Troponin I < 0.03 (< 0.04) ng/mL Serum Total Protein 6.3 L (6.4-8.9) g/dL Albumin 4.0 (3.5-5.7) g/dL Globulin 2.3 L (2.4-3.5) g/dL Albumin/Globulin Ratio 1.7 (1.1-2.2) Urine Color (Yellow) Urine Clarity (Clear) Urine pH (5.0-8.0) pH Units Ur Specific [place] (1.010-1.025) Urine Protein (Neg-Trace) mg/dL Urine Glucose (UA) (Normal) mg/dL Urine Ketones (Negative) mg/dL Urine Blood (Negative) Urine Nitrite (Negative) Urine Bilirubin (Negative) Urine Urobilinogen (Normal) mg/dL Ur Leukocyte Esterase (Negative) Ur Culture Indicated? (NO) Digoxin 1.0 (0.8-2.0) ng/mL 08/05/17 08/05/17 Range/Units 19:35 19:53 WBC (4.3-11.1) K/mcL RBC (4.19-5.50) M/mcL Hgb (12.9-16.9) g/dL Hct (37.5-50.1) % MCV (83.0-100.0) fL MCH (28.0-33.3) pg MCHC (31.6-35.5) g/dL RDW (11.5-14.5) % Plt Count (140-400) K/mcL MPV (9.4-12.4) fL Immature Gran % (0-4) % Seg Neutrophils % % Lymphocytes % % Monocytes % % Eosinophils % % Basophils % % Neutrophils # (1.6-8.9) K/mcL Lymphocytes # (0.6-4.6) K/mcL Monocytes # (0.0-1.3) K/mcL Eosinophils # (0.0-0.6) K/mcL Basophils # (0.0-0.2) K/mcL PT (9.4-12.1) Seconds INR Sodium (136-145) mEq/L Potassium (3.5-5.1) mEq/L Chloride (98-107) mEq/L Carbon Dioxide (23-29) mEq/L BUN (8-23) mg/dL Creatinine (0.70-1.30) mg/dL Est GFR ( Amer) (> 60) Est GFR (Non-Af Amer) (> 60) BUN/Creatinine Ratio (6-26) Glucose (70-105) mg/dL POC Glucose 139 H (70-99) mg/dL Calculated Osmolality (280-300) Calcium (8.6-10.3) mg/dL Total Bilirubin (0.3-1.0) mg/dL AST (13-39) Units/L ALT (7-52) Units/L Alkaline Phosphatase (34-104) Units/L Troponin I (< 0.04) ng/mL Serum Total Protein (6.4-8.9) g/dL Albumin (3.5-5.7) g/dL Globulin (2.4-3.5) g/dL Albumin/Globulin Ratio (1.1-2.2) Urine Color Yellow (Yellow) Urine Clarity Clear (Clear) Urine pH 7.0 (5.0-8.0) pH Units Ur Specific [place] 1.015 (1.010-1.025) Urine Protein Negative (Neg-Trace) mg/dL Urine Glucose (UA) Normal (Normal) mg/dL Urine Ketones Negative (Negative) mg/dL Urine Blood Negative (Negative) Urine Nitrite Negative (Negative) Urine Bilirubin Negative (Negative) Urine Urobilinogen Normal (Normal) mg/dL Ur Leukocyte Esterase Negative (Negative) Ur Culture Indicated? NO (NO) Digoxin (0.8-2.0) ng/mL - Radiology Data Radiology results reviewed: Yes I reviewed the patient's radiology results. Chest X-Ray 08/05/17 19:03 IMPRESSION: Stable asbestos related pleural disease. No acute abnormality. D/ / Reggie Deng MD / Reggie Deng MD Interpreting Provider: Reggie Deng MD Head CT 08/05/17 19:04 IMPRESSION: No acute intracranial abnormality. Diffuse atrophic changes with findings suggesting chronic microvascular ischemia D/ / Eric Capellan MD / Eric Capellan MD Interpreting Provider: Eric Capellan MD - EKG Data EKG #1 EKG attestation: Yes I reviewed and interpreted this EKG. EKG results narrative: EKG shows atrial fibrillation at a rate of 78 bpm, QRS duration of 98, QTC of 370 with a normal axis. There is no evidence of STEMI on EKG. This was compared to previous EKG on 07/07/17 which showed atrial fibrillation with rapid ventricular response at a rate of 127 bpm. Attestation Statement - Attestation Attestation: I examined this patient and my medical decision-making was reviewed with the Resident Physician, Dr. Solitario. I agree with the documented findings, disposition and treatment plan as described except to the extent set forth below. Patient is an 81-year-old white male who presents to the emergency department today brought by his for complaints of acute onset of visual changes and lightheadedness that began at about 3 to 3:30 PM this afternoon. Patient was brought back directly to a bed and evaluated on arrival. Patient denied any chest pain pressure or heaviness, no shortness of breath, no diaphoresis, no palpitations, no leg headedness or syncope but did state that he felt a little lightheaded and dizzy while Ambulating. Patient denies any room spinning like sensation no headache but is complaining of some visual changes that he describes as blinking lights that he sees in his lower visual field on both sides. Patient denies any eye pain. Patient has clear speech with no focal extremity numbness or weakness. Patient appears comfortable on arrival and expresses that while he was at home just before the onset of these symptoms a very good friend of his he is also on Coumadin fell on his from porch and he was extremely concerned about him falling and was very anxious. I agree with patient's physical exam findings as documented. Vital signs are stable on arrival, NIH score equals 0. Patient had full evaluation including EKG lab evaluation CT of the head and chest x-ray as well as dig levels. All of patient's testing is within normal limits. Patient's visual acuity was within normal limits and recorded on chart. Patient on reevaluation is still having the same visual changes with no improvement and no visual field loss. Otherwise has no complaints. Patient will be admitted for further neurologic evaluation of these symptoms. Case was discussed with hospitalist to accept the patient for admission for further evaluation and management.
[2017-08-05 19:39] LABS: Basophils % 0.5 %; Eosinophils # 0.3 K/mcL (0.0-0.6); Eosinophils % 4.5 %; Hematocrit 35.3 % (37.5-50.1); Hemoglobin 11.6 g/dL (12.9-16.9); Immature Granulocytes % 0.2 % (0-4); Lymphocytes # 2.3 K/mcL (0.6-4.6); Lymphocytes % 39.2 %; Mean Corpuscular HGB Conc 32.9 g/dL (31.6-35.5); Mean Corpuscular Hemoglobin 29.4 pg (28.0-33.3); Mean Corpuscular Volume 89.6 fL (83.0-100.0); Mean Platelet Volume 9.7 fL (9.4-12.4); Monocytes # 0.4 K/mcL (0.0-1.3); Monocytes % 7.3 %; Neutrophils # 2.8 K/mcL (1.6-8.9); Platelet Count 185 K/mcL (140-400); Red Blood Count 3.94 M/mcL (4.19-5.50); Red Cell Distribution Width 12.5 % (11.5-14.5); Segmented Neutrophils % 48.3 %
[2017-08-05 19:42] LABS: Bilirubin,Urine Negative (Negative); Blood,Urine Negative (Negative); Clarity,Urine Clear (Clear); Color,Urine Yellow (Yellow); Glucose,Urine (UA) Normal (Normal); Ketones,Urine Negative (Negative); Leukocyte Esterase,Urine Negative (Negative); Nitrite,Urine Negative (Negative); Protein,Urine Negative (Neg-Trace); Specific Gravity,Urine 1.015 (1.010-1.025); Urobilinogen,Urine Normal (Normal)
[2017-08-05 19:47] LABS: INR 2.1; Prothrombin Time 23.2 Seconds (9.4-12.1)
[2017-08-05 19:55] LABS: Troponin I < 0.03 ng/mL (< 0.04)
[2017-08-05 19:56] LABS: Alanine Aminotransferase 23 Units/L (7-52); Albumin/Globulin Ratio 1.7 (1.1-2.2); Alkaline Phosphatase 53 Units/L (34-104); Aspartate Amino Transferase 20 Units/L (13-39); BUN/Creatinine Ratio 19 (6-26); Bilirubin,Total 0.4 mg/dL (0.3-1.0); Blood Urea Nitrogen 21 mg/dL (8-23); Carbon Dioxide 28 mEq/L (23-29); Chloride 104 mEq/L (98-107); Globulin 2.3 g/dL (2.4-3.5); Glucose 128 mg/dL (70-105); Osmolality,Calculated 287 (280-300); Potassium 4.9 mEq/L (3.5-5.1); Sodium 136 mEq/L (136-145); Total Protein 6.3 g/dL (6.4-8.9); eGFR For African Americans > 60 (> 60); eGFR For Non-African Americans > 60 (> 60)
--- NOTE | 2017-08-06 01:32 | Internal Med History&Physical ---
Date of Encounter: 08/06/17 Time of Encounter: 01:29 Assessment and Plan (1) Atrial fibrillation Current visit: No Status: Acute continue home meds Qualifiers: Atrial fibrillation type: unspecified Qualified Code(s): I48.91 - Unspecified atrial fibrillation (2) COPD (chronic obstructive pulmonary disease) Current visit: No Status: Chronic no active wheezing Qualifiers: COPD type: unspecified COPD Qualified Code(s): J44.9 - Chronic obstructive pulmonary disease, unspecified (3) Visual changes Current visit: Yes Status: Acute unclear etiology will consult neurology (4) Cardiomyopathy Current visit: Yes Status: Chronic non ischemidc well compensated Qualifiers: Cardiomyopathy type: other Qualified Code(s): I42.8 - Other cardiomyopathies (5) CHF (congestive heart failure) Current visit: No Status: Acute Qualifiers: Heart failure type: unspecified Heart failure chronicity: acute Qualified Code(s): I50.9 - Heart failure, unspecified Internal Medicine - H&P: HPI Chief complaint: visual disturbance Admitted From: Emergency Dept Plans for Post Hospital Care: Home History of present illness: Mr. Ferraro is a 81 year old male Patient with history of high cholesterol, atrial fibrillation, on Coumadin, cardiomyopathy EF 30%, COPD patient presented emergency room due to visual disturbances . apparently someone fell on patient porch and he became stressed and noted some visual changes of some bright zigzag at a lower field of vision with some tremur which resolved but continued to have the visual disturbance come to the emergency room denies any headaches no weakness or speech disturbance CT of the head was negative patient admitted for follow up evaluation. Past Med Surg Social Fam HX - Past Medical History Medical history: arthritis, CHF, hyperlipidemia, other Psychiatric history: no psych history - Past Surgical History Surgical History: herniorrhaphy, vasectomy - Social History Smoking Status: Never smoker Smokeless Tobacco Status: No Alcohol use: none Drug use: none - Family History Brother Hx Family Cardiac Disorders: Yes (CAD) Internal Medicine - H&P: Meds Doxazosin [Cardura] 8 mg PO HS 05/14/15 [History] Mv-Min/Vit C/Glut/Rhea AC/Hc124 [Airborne Tablet Chewable] 1 tab PO DAILY [History] Aspirin Enteric Coated [Aspirin EC] 81 mg PO DAILY #30 tablet. 07/09/17 [Rx] Atorvastatin [Lipitor] 40 mg PO HS #30 tablet 07/09/17 [Rx] Digoxin [Lanoxin] 0.125 mg PO DAILY #30 tablet 07/09/17 [Rx] Furosemide [Lasix] 20 mg PO DAILY #30 tablet 07/09/17 [Rx] Lisinopril [Zestril] 2.5 mg PO DAILY #30 tablet 07/09/17 [Rx] Metoprolol XL (24 HR) Succ [Toprol Xl] 12.5 mg PO DAILY #30 tab.er.24h 07/09/17 [Rx] Warfarin [Coumadin] 3 mg PO DAILY #60 tablet 07/09/17 [Rx] 3 Allergy/AdvReac Type Severity Reaction Status Date / Time No Known Allergies Allergy Verified 08/05/17 21:18 All Systems PM: A 10-system review of systems was performed and is negative for pertinent findings except as documented above in the HPI. - Constitutional Vitals: Temp Pulse Resp BP Pulse Ox 98.0 F 78 16 97/57 97 08/05/17 22:16 08/05/17 22:16 08/05/17 22:16 08/05/17 22:16 08/05/17 22:16 - Head Head exam: Present: atraumatic, normocephalic - Eye Eye exam: Present: PERRL, conjuntiva pink, sclera anicteric Pupils: Present: PERRL - Neck Neck exam general surgery: Present: supple, trachea midline. Absent: lymphadenopathy - Respiratory Respiratory exam: Present: CTAB. Absent: accessory muscle use, rales, rhonchi, wheezes - Cardiovascular Cardiovascular exam: Present: RRR, +S1, +S2. Absent: diastolic murmur, gallop, rubs, systolic murmur - GI/Abdominal GI/Abdominal exam: Present: normal bowel sounds, soft, no peritoneal signs. Absent: distended, tenderness - Extremities Exam Extremities exam: Present: warm, radial pulses palpable and symmetrical. Absent : calf tenderness, cyanotic, pedal edema - Neurological Exam Neurological exam: Present: CN II-XII intact, oriented X3, no focal deficits. Absent: pronater drift, facial droop, speech deficit - Skin Skin exam: Present: dry, intact Internal Med - H&P Results - Labs CBC & Chem 7: 08/05/17 19:17 08/05/17 19:17
[2017-08-06] MEDS ORDERED: traMADol 50 MG TABLET PO PRN (01:36)
[2017-08-06] MEDS ORDERED: Naloxone 0.4 MG/ML INJ IVP PRN (01:36)
[2017-08-06] MEDS ORDERED: Acetaminophen 325 MG TABLET PO PRN (01:36)
[2017-08-06] MEDS: 0.9 % Sodium Chloride 1,000 ML IVC SCH ×2 (02:34→22:35)
[2017-08-06 05:31] LABS: Basophils % 0.6 %; Eosinophils # 0.4 K/mcL (0.0-0.6); Hematocrit 32.3 % (37.5-50.1); Hemoglobin 10.9 g/dL (12.9-16.9); Immature Granulocytes % 0.2 % (0-4); Mean Corpuscular HGB Conc 33.7 g/dL (31.6-35.5); Mean Corpuscular Hemoglobin 29.9 pg (28.0-33.3); Mean Corpuscular Volume 88.5 fL (83.0-100.0); Mean Platelet Volume 9.8 fL (9.4-12.4); Monocytes # 0.4 K/mcL (0.0-1.3); Monocytes % 7.2 %; Neutrophils # 2.2 K/mcL (1.6-8.9); Platelet Count 165 K/mcL (140-400); Red Blood Count 3.65 M/mcL (4.19-5.50); Red Cell Distribution Width 12.6 % (11.5-14.5)
[2017-08-06 05:56] LABS: Alanine Aminotransferase 21 Units/L (7-52); Albumin 3.5 g/dL (3.5-5.7); Albumin/Globulin Ratio 1.7 (1.1-2.2); Alkaline Phosphatase 47 Units/L (34-104); Aspartate Amino Transferase 18 Units/L (13-39); BUN/Creatinine Ratio 20 (6-26); Bilirubin,Total 0.5 mg/dL (0.3-1.0); Blood Urea Nitrogen 18 mg/dL (8-23); Calcium 8.6 mg/dL (8.6-10.3); Carbon Dioxide 27 mEq/L (23-29); Chloride 105 mEq/L (98-107); Chol/HDL Ratio 2.8 (0-4.9); Cholesterol 111 mg/dL (< 200); Globulin 2.1 g/dL (2.4-3.5); Glucose 98 mg/dL (70-105); HDL Cholesterol 39 mg/dL (40-59); LDL Cholesterol,Calculated 54 mg/dL (0-99); Magnesium 1.7 mg/dL (1.6-2.6); Osmolality,Calculated 288 (280-300); Potassium 4.1 mEq/L (3.5-5.1); Sodium 138 mEq/L (136-145); Total Protein 5.6 g/dL (6.4-8.9); Triglycerides 91 mg/dL (< 150); eGFR For African Americans > 60 (> 60); eGFR For Non-African Americans > 60 (> 60)
--- NOTE | 2017-08-06 08:45 | Neurology - Consult Note ---
Date of Encounter: 08/06/17 Time of Encounter: 08:41 Assessment and Plan (1) Visual changes Current Visit: Yes Status: Acute At this point I would simply like to rule out the possibility of an occipital lobe infarct accounting for the visual changes he experienced acutely. The tremors were more than likely due to anxiety and stress associated with the situation. He does have a history of a-fib. INR therapeautic His BP tends to run low. Denies syncope I will simply obtain an MRI of the brain. If the MRI is negative you may d/c him at your discreation. History of Present Illness HPI: Mr. Ferraro is a 81 year old male who was seen for neurologic consultation at the request of the hospitalist group due to visual changes associated with the tremors. He mentions that yesterday afternoon at about 3:30 his cousin to come to visit him and his cousin fell on the porch. At that point he became excited and was very stressed. He noticed wavy lines in his visual field. He denies headache. Denies decreased LOC. Denies numbness, tingling or weakness of the face arms or legs. The visual changes persisted for about 12 hours. Now he is back to his baseline. He also c/o tremors due to the acute stress, however he did not have a seizure. Currently he is AAOx3. Past Med Surg Social Fam HX - Past Medical History Medical history: arthritis, CHF, hyperlipidemia, other Psychiatric history: no psych history - Past Surgical History Surgical History: herniorrhaphy, vasectomy - Social History Smoking Status: Never smoker Smokeless Tobacco Status: No Alcohol use: none Drug use: none - Family History Brother Hx Family Cardiac Disorders: Yes (CAD) Medications and Allergies Doxazosin [Cardura] 8 mg PO HS 05/14/15 [History] Mv-Min/Vit C/Glut/Rhea AC/Hc124 [Airborne Tablet Chewable] 1 tab PO DAILY [History] Aspirin Enteric Coated [Aspirin EC] 81 mg PO DAILY #30 tablet. 07/09/17 [Rx] Atorvastatin [Lipitor] 40 mg PO HS #30 tablet 07/09/17 [Rx] Digoxin [Lanoxin] 0.125 mg PO DAILY #30 tablet 07/09/17 [Rx] Furosemide [Lasix] 20 mg PO DAILY #30 tablet 07/09/17 [Rx] Lisinopril [Zestril] 2.5 mg PO DAILY #30 tablet 07/09/17 [Rx] Metoprolol XL (24 HR) Succ [Toprol Xl] 12.5 mg PO DAILY #30 tab.er.24h 07/09/17 [Rx] Warfarin [Coumadin] 3 mg PO DAILY #60 tablet 07/09/17 [Rx] 3 Allergy/AdvReac Type Severity Reaction Status Date / Time No Known Allergies Allergy Verified 08/05/17 21:18 All Systems: The remainder of the systems were reviewed and are negative Review of Systems: Remaining systems reviewed are all negative. Physical Examination - Vital Signs Vital Signs: Initial Vital Signs Temp Pulse Resp BP Pulse Ox 98.0 F 86 16 102/60 96 08/05/17 18:41 08/05/17 18:41 08/05/17 18:41 08/05/17 18:41 08/05/17 18:41 - Neurologic Detailed motor examination: grossly full strength in all extremities (No involuntary movements identified, no atrophy is present.) Detailed sensory examination: other (Light touch, deep touch, pain and temperature and proprioception are all intact.) Reflex and gait examination: other (DTR's are diminished throughout.) Mental Status Examination: awake, alert, oriented to person, oriented to place, oriented to time, follows commands appropriately, answers questions appropriately, no agnosia, no aphasia, no aproxia Cranial nerve examination: PERRL, EOMI, visual bedolla intact, corneal reflexes brisk symmetrically, sensory to face intact, mastication intact, no facial asymmetry is present, no dysarthria, hearing is intact symmetrically, soft palate elevates bilaterally upon phonation, gag reflex intact, flexes SCM and trapezius muscles symmetrically with full power, tongue protrudes midline, no atrophy or facial fasiculations present Cerebellar examination: no dysmetria, performs finger to nose and heel to garzon symmetrically without ataxia, no gait ataxia (gait is stable with a cane.) Results - Laboratory Findings CBC and BMP: 08/06/17 04:18 08/06/17 04:18 Abnormal lab findings: Abnormal lab results RBC 3.65 M/mcL (4.19-5.50) L 08/06/17 04:18 Hgb 10.9 g/dL (12.9-16.9) L 08/06/17 04:18 Hct 32.3 % (37.5-50.1) L 08/06/17 04:18 PT 23.2 Seconds (9.4-12.1) H 08/05/17 19:17 POC Glucose 139 mg/dL (70-99) H 08/05/17 19:53 Serum Total Protein 5.6 g/dL (6.4-8.9) L 08/06/17 04:18 Globulin 2.1 g/dL (2.4-3.5) L 08/06/17 04:18 HDL Cholesterol 39 mg/dL (40-59) L 08/06/17 04:18 Consult Discharge Plan - Plan Referrals: Vance Judge Jr, MD [Primary Care Provider] -
[2017-08-06] MEDS: Multivit/Ca/Min/Fe/FA 1 TAB TABLET PO SCH (09:54)
[2017-08-06] MEDS: *HR* Digoxin 0.125 MG TABLET PO SCH (09:54)
[2017-08-06] MEDS: Aspirin Enteric Coated 81 MG Tablet PO SCH (09:54)
[2017-08-06] MEDS: Metoprolol XL (24 HR) Succ 25 MG TAB.ER.24H PO SCH (09:54)
--- NOTE | 2017-08-06 14:23 | Internal Med Progress Note ---
Date of Encounter: 08/06/17 Time of Encounter: 14:23 - Time Spent With Patient Total time spent is greater than 50% in coordination of care (as documented) at patient's floor/unit and/or counseling patient: - Constitutional Vitals: Temp Pulse Resp BP Pulse Ox 98.0 F 67 15 94/56 93 08/06/17 12:06 08/06/17 12:06 08/06/17 12:06 08/06/17 12:06 08/06/17 12:06 Internal Medicine: Result - Labs CBC & Chem 7: 08/06/17 04:18 08/06/17 04:18 Labs: Short CBC 08/06/17 Range/Units 04:18 WBC 5.0 (4.3-11.1) K/mcL Hgb 10.9 L (12.9-16.9) g/dL Hct 32.3 L (37.5-50.1) % Plt Count 165 (140-400) K/mcL Neutrophils # 2.2 (1.6-8.9) K/mcL BMP 08/06/17 04:18 Sodium 138 Potassium 4.1 Chloride 105 Carbon Dioxide 27 BUN 18 Creatinine 0.91 Glucose 98 Calcium 8.6 Liver Function 08/06/17 Range/Units 04:18 Total Bilirubin 0.5 (0.3-1.0) mg/dL AST 18 (13-39) Units/L ALT 21 (7-52) Units/L Alkaline Phosphatase 47 (34-104) Units/L Albumin 3.5 (3.5-5.7) g/dL - ABG Interpretation ABG results: PT/INR, D-dimer PT 23.2 Seconds (9.4-12.1) H 08/05/17 19:17 - Impressions Impressions Brain MRI 08/06/17 08:52 IMPRESSION: 1. Small acute to subacute infarct involving the left posterior frontal lobe white matter. No significant mass effect or midline shift. 2. Minimal global parenchymal volume loss with minimal chronic microvascular ischemic change. These results were sent to the [facility] ([facility] on 08/06/2017 at 11:45 am to be communicated to the referring/covering health care provider/office. D/ / Carter Case MD / Carter Case MD Interpreting Provider: aCrter Case MD Consult Discharge Plan - Plan Referrals: Vance Judge Jr, MD [Primary Care Provider] -
[2017-08-06] MEDS ORDERED: DiphenhydraMINE CREAM 28.4 GM TUBE TP PRN (17:21)
[2017-08-06] MEDS: *HR* Warfarin 3 MG TABLET PO SCH (18:05)
--- NOTE | 2017-08-06 20:22 | Event Note ---
Date of Encounter: 08/06/17 Time of Encounter: 13:00 Patient presented with visual changes describing wavy lines in his visual field. He denies any headache denies any numbness tingling or weakness. Neurology has been consulted and has ordered MRI of brain. MRI shows small acute to subacute infarct involving the left posterior frontal lobe white matter no significant mass effect or midline shift. Dr. Luong was notified per nursing staff and aware of results. Patient has a history of atrial fibrillation is on Coumadin.
[2017-08-07 05:43] LABS: Basophils # 0.1 K/mcL (0.0-0.2); Basophils % 0.9 %; Eosinophils # 0.4 K/mcL (0.0-0.6); Eosinophils % 6.9 %; Hematocrit 34.4 % (37.5-50.1); Hemoglobin 11.2 g/dL (12.9-16.9); Immature Granulocytes % 0.3 % (0-4); Lymphocytes # 2.2 K/mcL (0.6-4.6); Lymphocytes % 38.3 %; Mean Corpuscular HGB Conc 32.6 g/dL (31.6-35.5); Mean Corpuscular Hemoglobin 29.6 pg (28.0-33.3); Mean Platelet Volume 9.8 fL (9.4-12.4); Monocytes # 0.3 K/mcL (0.0-1.3); Monocytes % 5.5 %; Neutrophils # 2.8 K/mcL (1.6-8.9); Platelet Count 171 K/mcL (140-400); Red Blood Count 3.78 M/mcL (4.19-5.50); Red Cell Distribution Width 12.8 % (11.5-14.5); Segmented Neutrophils % 48.1 %
[2017-08-07 06:08] LABS: BUN/Creatinine Ratio 15 (6-26); Blood Urea Nitrogen 15 mg/dL (8-23); Calcium 8.7 mg/dL (8.6-10.3); Carbon Dioxide 26 mEq/L (23-29); Chloride 107 mEq/L (98-107); Glucose 98 mg/dL (70-105); Osmolality,Calculated 289 (280-300); Potassium 4.2 mEq/L (3.5-5.1); Sodium 139 mEq/L (136-145); eGFR For African Americans > 60 (> 60); eGFR For Non-African Americans > 60 (> 60)
[2017-08-07 07:11] LABS: INR 1.7; Prothrombin Time 18.2 Seconds (9.4-12.1)
[2017-08-07] MEDS: Aspirin Enteric Coated 81 MG Tablet PO SCH (09:58)
[2017-08-07] MEDS: Metoprolol XL (24 HR) Succ 25 MG TAB.ER.24H PO SCH (09:58)
[2017-08-07] MEDS: Multivit/Ca/Min/Fe/FA 1 TAB TABLET PO SCH (09:58)
[2017-08-07] MEDS: *HR* Digoxin 0.125 MG TABLET PO SCH (09:58)
--- NOTE | 2017-08-07 11:34 | Neurology Progress Note ---
<Jose Alberto Hurst - Last Filed: 08/07/17 11:41> Date of Encounter: 08/07/17 Time of Encounter: 11:32 Assessment and Plan (1) Lacunar infarct, acute Current Visit: Yes Status: Acute MRI of the brain shows left posterior frontal lobe small acute to subacute infarct. Patient's neuro exam is nonfocal and nonlateralizing. Recent echocardiogram on 07/05/17 showed EF of 30-35% with moderately dilated left atrium and global left ventricular systolic dysfunction. Patient also had a recent left heart catheter on 07/08/17 that showed mild atherosclerotic coronary artery disease and moderately severe left ventricular dysfunction with EF of 30%. Patient is able to ambulate independently with a cane patient tolerating his diet and does not have any difficulty swallowing. We will obtain carotid Dopplers. continue aspirin and statin. (2) Visual changes Current Visit: Yes Status: Acute unclear etiology visual changes. This has not resolved. Patient's location of acute infarct does not correlate with the symptoms of having visual changes. (3) Atrial fibrillation Current Visit: Yes Status: Acute Patient has history of atrial fibrillation and is anticoagulated with warfarin. On admission his INR was therapeutic at 2.1. He is rate controlled. Qualifiers: Atrial fibrillation type: chronic Qualified Code(s): I48.2 - Chronic atrial fibrillation Subjective Principal diagnosis: CVA Interval history: Patient's visual symptoms of wavy lines have resolved. He denies any acute overnight events. He reports his vision is back to normal. He denies headache , numbness, tingling, weakness. Objective - Constitutional Vitals: Temp Pulse Resp BP Pulse Ox 99.0 F 70 14 106/62 95 08/07/17 06:27 08/07/17 06:27 08/07/17 06:27 08/07/17 06:27 08/07/17 06:27 - Neurological Exam Motor Examination: Present: grossly full strength in all extremities (No involuntary movements identified, no atrophy is present.) Sensation intact: Present: other (Light touch, deep touch, pain and temperature and proprioception are all intact.) Reflex and gait examination: other (DTR's are diminished throughout.) Reflexes: Biceps: 2+, Triceps: 2+, Brachioradialis: 2+, Patella: 2+, Achilles: 2 + Mental Status Examination: Present: awake, alert, oriented to person, oriented to place, oriented to time, follows commands appropriately, answers questions appropriately, no agnosia, no aphasia, no aproxia Cranial nerve examination: Present: PERRL, EOMI, visual bedolla intact, corneal reflexes brisk symmetrically, sensory to face intact, mastication intact, no facial asymmetry is present, no dysarthria, hearing is intact symmetrically, soft palate elevates bilaterally upon phonation, gag reflex intact, flexes SCM and trapezius muscles symmetrically with full power, tongue protrudes midline, no atrophy or facial fasiculations present Cerebellar examination: Present: no dysmetria, performs finger to nose and heel to garzon symmetrically without ataxia, no gait ataxia (gait is stable with a cane.) - Other Additional findings: General: without distress Heart: Irregularly irregular Lungs: Clear to auscultation bilaterally Abdomen: Soft nontender, nondistended positive bowel sounds Skin: warm and dry Extremities: Absent pedal edema, Vascular: Pedal and radial pulses 2 out of 4 Results - Laboratory Findings CBC and BMP: 08/07/17 05:00 08/07/17 05:00 Abnormal lab findings: Abnormal lab results RBC 3.78 M/mcL (4.19-5.50) L 08/07/17 05:00 Hgb 11.2 g/dL (12.9-16.9) L 08/07/17 05:00 Hct 34.4 % (37.5-50.1) L 08/07/17 05:00 PT 18.2 Seconds (9.4-12.1) H 08/07/17 06:48 POC Glucose 139 mg/dL (70-99) H 08/05/17 19:53 Serum Total Protein 5.6 g/dL (6.4-8.9) L 08/06/17 04:18 Globulin 2.1 g/dL (2.4-3.5) L 08/06/17 04:18 HDL Cholesterol 39 mg/dL (40-59) L 08/06/17 04:18 Consult Discharge Plan - Plan Referrals: Vance Judge Jr, MD [Primary Care Provider] - <Eric Luong - Last Filed: 08/07/17 16:19> Date of Encounter: 08/07/17 Time of Encounter: 16:09 Assessment and Plan (1) Visual changes Current Visit: Yes Status: Acute Chart was reviewed, patient was seen and examined independently. Case was discussed with Dr. Hurst. At this point Mr. Cleary is back to his normal baseline. The carotid Doppler studies revealed nonstenotic plaquing. Echocardiogram does reveal 35% ejection fraction. His neurologic examination is stabilized. Is difficult to propose a specific mechanism for this event I will therefore designate it is cryptogenic. Although he does have atrial fibrillation and reduced cardiac ejection fraction, he was adequately anticoagulated when admitted. And we are not able to identify stenotic vessels in the carotid circulation. He has been taking aspirin 81 mg at home as well. I agree with maintaining the aspirin. From a neurologic perspective he is stable may discharge him at your discretion. (2) CVA (cerebral vascular accident) Current Visit: Yes Status: Acute Qualifiers: Laterality of affected vessel: left Subjective Interval history: The chart was reviewed, the patient was seen and examined independently. The case was discussed with Dr. Hurst. I agree with his assessment as above. Patient has been up walking to the bathroom denies any exacerbation of any of his previous neurologic symptoms. Carotid Doppler study reveals nonstenotic plaquing. Echocardiogram however reveals a 35% ejection fraction. He also has a known history of atrial fibrillation. MRI scan of the brain revealed a subacute left posterior frontal lobe infarct. Neurologic examination finds a slight bit of weakness of the right upper and right lower extremity. However this does not limit her normal function. Objective - Constitutional Vitals: Temp Pulse Resp BP Pulse Ox 97.5 F L 68 18 94/59 94 08/07/17 14:38 08/07/17 14:38 08/07/17 14:38 08/07/17 14:38 08/07/17 14:38 - Neurological Exam Motor Examination: Present: other (Today I do find a tad of weakness of the right upper and right lower extremity. This however does not limit her functional abilities. No involuntary movements no atrophy are present. He is able to walk without difficulty using his cane.) Sensation intact: Present: other Reflex and gait examination: other Results - Laboratory Findings CBC and BMP: 08/07/17 05:00 08/07/17 05:00 Abnormal lab findings: Abnormal lab results RBC 3.78 M/mcL (4.19-5.50) L 08/07/17 05:00 Hgb 11.2 g/dL (12.9-16.9) L 08/07/17 05:00 Hct 34.4 % (37.5-50.1) L 08/07/17 05:00 PT 18.2 Seconds (9.4-12.1) H 08/07/17 06:48 POC Glucose 139 mg/dL (70-99) H 08/05/17 19:53 Serum Total Protein 5.6 g/dL (6.4-8.9) L 08/06/17 04:18 Globulin 2.1 g/dL (2.4-3.5) L 08/06/17 04:18 HDL Cholesterol 39 mg/dL (40-59) L 08/06/17 04:18
[2017-08-07 14:39] VITALS: BP 94/59
--- NOTE | 2017-08-07 16:55 | Discharge Summary ---
- NOTES TO OUTPATIENT PROVIDER Notes to Outpatient Provider: Lacunar infarct- cont ASA statin and coumadin per neurology recommendations Orders not resulted at time of discharge: Pending orders 08/07/17 11:39 EV carotid duplex imaging BI Routine 08/08/17 04:00 INR/PT [Prothrombin Time INR] [COAG] AM 0400 08/09/17 04:00 INR/PT [Prothrombin Time INR] [COAG] AM 0400 08/10/17 04:00 INR/PT [Prothrombin Time INR] [COAG] AM 0400 Date of Encounter: 08/07/17 Time of Encounter: 16:53 - Discharge Diagnosis (1) Atrial fibrillation Priority: Secondary Status: Chronic Qualifiers: Atrial fibrillation type: chronic Qualified Code(s): I48.2 - Chronic atrial fibrillation (2) Lacunar infarct, acute Priority: Primary Status: Acute (3) Visual changes Priority: Primary Status: Acute (4) COPD (chronic obstructive pulmonary disease) Priority: Secondary Status: Chronic Qualifiers: COPD type: unspecified COPD Qualified Code(s): J44.9 - Chronic obstructive pulmonary disease, unspecified (5) CHF (congestive heart failure) Priority: Secondary Status: Acute Qualifiers: Heart failure type: unspecified Heart failure chronicity: acute Qualified Code(s): I50.9 - Heart failure, unspecified Hospital course: Mr. Ferraro is a 81 year old male past medical history arthritis CHF hyperlipidemia presented to the emergency department after experiencing visual changes associated with tremors he also noticed wavy lines in his visual field he denied any headaches or loss of consciousness tingling or weakness of the face arms or legs. The visual changes persisted for approximately [address] of head was negative MRI of the brain showed left posterior frontal lobe small acute to subacute infarct echocardiogram 07/05/17 showed EF of 30-35% with moderately dilated left atrium and global left ventricular systolic dysfunction and heart catheterization on 07/08/17 mild atherosclerotic coronary artery disease and moderately severe left ventricular dysfunction with EF of 30% carotid Dopplers were obtained nonstenotic plaque bilaterally. Patient was seen by neurology who recommended continuation of Coumadin aspirin and statin. During admission patient did have a low blood pressure his lisinopril stopped. He was evaluated by PT with no recommendations. He is follow up with PCP I advised patient to continue medications and to follow up with PCP. Verbalized understanding He is hemodynamically stable and is ready for discharge Discharge discussed with: patient - Time Spent with Patient Total time spent providing and/or coordinating discharge services: - Discharge Medications Prescriptions: Aspirin Enteric Coated [Aspirin EC] 81 mg PO DAILY #30 tablet. Atorvastatin [Lipitor] 40 mg PO HS #30 tablet Digoxin [Lanoxin] 0.125 mg PO DAILY #30 tablet Doxazosin [Cardura] 8 mg PO HS #30 tablet Furosemide [Lasix] 20 mg PO DAILY #30 tablet Metoprolol XL (24 HR) Succ [Toprol Xl] 12.5 mg PO DAILY #30 tab.er.24h Mv-Min/Vit C/Glut/Rhea AC/Hc124 [Airborne Tablet Chewable] 1 tab PO DAILY #30 tab.chew Warfarin [Coumadin] 3 mg PO MOTUTHSA #20 tablet Warfarin [Coumadin] 4 mg PO SUWEFR #20 tablet Home Medications: Aspirin Enteric Coated [Aspirin EC] 81 mg PO DAILY #30 tablet. 08/07/17 [Rx] Atorvastatin [Lipitor] 40 mg PO HS #30 tablet 08/07/17 [Rx] Digoxin [Lanoxin] 0.125 mg PO DAILY #30 tablet 08/07/17 [Rx] Doxazosin [Cardura] 8 mg PO HS #30 tablet 08/07/17 [Rx] Furosemide [Lasix] 20 mg PO DAILY #30 tablet 08/07/17 [Rx] Metoprolol XL (24 HR) Succ [Toprol Xl] 12.5 mg PO DAILY #30 tab.er.24h 08/07/17 [Rx] Mv-Min/Vit C/Glut/Rhea AC/Hc124 [Airborne Tablet Chewable] 1 tab PO DAILY #30 tab.chew 08/07/17 [Rx] Warfarin [Coumadin] 3 mg PO 1800 #0 tablet 08/07/17 [Rx] Warfarin [Coumadin] 3 mg PO MOTUTHSA #20 tablet 08/07/17 [Rx] Warfarin [Coumadin] 4 mg PO SUWEFR #20 tablet 08/07/17 [Rx] Allergies/Adverse Reactions: 3 Allergy/AdvReac Type Severity Reaction Status Date / Time No Known Allergies Allergy Verified 08/05/17 21:18 Date of admission: 08/05/17 21:33 Primary care physician: Vance Judge Jr, MD Consults: 08/06/17 01:39 Consult to Neurology [CONS] Routine Consulting Provider: [facility] Reason for Consult: visual disturbance Call Completed: No 08/06/17 20:19 Consult to Occupational Therapy [CONS] Routine Comment: Evaluate, develop and implement POC Reason for Consult: stroke Does patient have active BEDREST order?: No Is patient medically & hemodynamically stable?: Yes Patient assessed for mobility or mobilized this visit?: Yes Discharging clinician: Bethany Lane Anticipated date of discharge: 08/07/17 - Constitutional Vitals: Temp Pulse Resp BP Pulse Ox 97.5 F L 68 18 94/59 94 08/07/17 14:38 08/07/17 14:38 08/07/17 14:38 08/07/17 14:38 08/07/17 14:38 General appearance: Present: A&O X 3 - Head Head exam: Present: atraumatic, normocephalic - Eye Eye exam: Present: PERRL, conjuntiva pink, sclera anicteric Pupils: Present: PERRL - Neck Neck exam general surgery: Present: supple, trachea midline. Absent: lymphadenopathy - Respiratory Respiratory exam: Present: CTAB. Absent: accessory muscle use, rales, rhonchi, wheezes - Cardiovascular Cardiovascular exam: Present: RRR, +S1, +S2. Absent: diastolic murmur, gallop, rubs, systolic murmur - GI/Abdominal GI/Abdominal exam: Present: normal bowel sounds, soft, no peritoneal signs. Absent: distended, tenderness - Extremities Exam Extremities exam: Present: warm, radial pulses palpable and symmetrical. Absent : calf tenderness, cyanotic, pedal edema - Neurological Exam Neurological exam: Present: CN II-XII intact, oriented X3, no focal deficits. Absent: pronater drift, facial droop, speech deficit - Skin Skin exam: Present: dry, intact - Patient Status Disposition: Home, Self-Care Condition: Good Functional capacity at discharge: independent ambulation Overall status at discharge: patient is back to baseline - Discharge Instructions Instructions: Transient Ischemic Attack (DC) Follow Up With: Vance Judge Jr, MD [Primary Care Provider] - - Diet and Activity Activity: increase activity as tolerated Diet: advance to your usual diet
[2017-08-07] MEDS: *HR* Warfarin 3 MG TABLET PO SCH (17:18)
[2017-08-07] MEDS ORDERED: Warfarin perPT PO PRN (18:00)
--- NOTE | 2017-08-08 19:08 | Electrocardiograph Report ---
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
== END 2017-08-07 17:35 | disposition home or self-care (01) ==
LOC: 3BNU 18:38 → EMEROO 18:38 → 3BNU 21:50
PROVIDERS: ADMIT Internal Medicine Cardiovascular Disease; ATTEND Internal Medicine

== ENCOUNTER 2021-10-24 10:59 | Inpatient (IN) ==
[2021-10-24] MEDS ORDERED: Iopamidol - 370 500 ML MLS IVP ONE (11:15)
[2021-10-24 12:02] LABS: Mean Platelet Volume 11.6 fL (9.4-12.4)
[2021-10-24 12:04] LABS: Basophils % 0.7 %; Eosinophils # 0.1 K/mcL (0.0-0.6); Eosinophils % 2.9 %; Hematocrit 29.8 % (37.5-50.1); Hemoglobin 9.5 g/dL (12.9-16.9); Immature Granulocytes % 0.2 % (0-4); Immature Platelets 8.5 % (1.1-6.1); Lymphocytes # 1.5 K/mcL (0.6-4.6); Lymphocytes % 32.7 %; Mean Corpuscular HGB Conc 31.9 g/dL (31.6-35.5); Mean Corpuscular Hemoglobin 29.5 pg (28.0-33.3); Mean Corpuscular Volume 92.5 fL (83.0-100.0); Monocytes # 0.4 K/mcL (0.0-1.3); Monocytes % 8.4 %; Neutrophils # 2.5 K/mcL (1.6-8.9); Platelet Count 86 K/mcL (140-400); Red Blood Count 3.22 M/mcL (4.19-5.50); Red Cell Distribution Width 14.2 % (11.5-14.5); Segmented Neutrophils % 55.1 %; White Blood Count 4.6 K/mcL (4.3-11.1)
[2021-10-24 12:09] LABS: INR 2.5; Prothrombin Time 28.2 Seconds (9.4-12.1)
[2021-10-24 12:12] LABS: Activated Partial Thrombo Time 35.8 Seconds (26.0-36.0)
[2021-10-24 12:15] LABS: Bilirubin,Urine Negative (Negative); Blood,Urine Negative (Negative); Clarity,Urine Clear (Clear); Color,Urine Colorless (Yellow); Glucose,Urine (UA) Normal (Normal); Ketones,Urine Negative (Negative); Leukocyte Esterase,Urine Negative (Negative); Nitrite,Urine Negative (Negative); PH,Urine 6.5 pH Units (5.0-8.0); Protein,Urine Negative (Neg-Trace); Urobilinogen,Urine Normal (Normal)
[2021-10-24 12:29] LABS: Alanine Aminotransferase 16 Units/L (7-52); Albumin 3.9 g/dL (3.5-5.7); Albumin/Globulin Ratio 1.3 (1.1-2.2); Alkaline Phosphatase 160 Units/L (34-104); Aspartate Amino Transferase 22 Units/L (13-39); BUN/Creatinine Ratio 18 (6-26); Bilirubin,Direct 0.4 mg/dL (0.0-0.2); Bilirubin,Indirect 0.9 mg/dL (0.0-1.0); Bilirubin,Total 1.3 mg/dL (0.3-1.0); Blood Urea Nitrogen 22 mg/dL (8-23); Calcium 9.1 mg/dL (8.6-10.3); Carbon Dioxide 26 mEq/L (23-29); Chloride 103 mEq/L (98-107); Creatine Kinase 146 Units/L (30-223); Glucose 110 mg/dL (70-105); Osmolality,Calculated 288 (280-300); Potassium 4.5 mEq/L (3.5-5.1); Sodium 137 mEq/L (136-145); Total Protein 6.9 g/dL (6.4-8.9); Troponin I 0.03 ng/mL (< 0.04); eGFR For African Americans > 60 (> 60); eGFR For Non-African Americans 55 (> 60)
[2021-10-24 12:33] LABS: Influenza A PCR Negative (Negative); Influenza B PCR Negative (Negative); Resp. Syncytial Virus PCR Negative (Negative)
[2021-10-24 12:36] LABS: SARS-CoV-2 by PCR (In House) Negative (Negative)
[2021-10-24] MEDS ORDERED: Furosemide 20 MG/2 ML VIAL IVP ONE (13:03)
[2021-10-24] MEDS ORDERED: Naloxone 0.4 MG/ML INJ IVP PRN (13:06)
[2021-10-24] MEDS: Albumin 25% 25gram/100mL 25 GM/100 ML IV.SOLN IVPB SCH ×2 (14:57→21:35)
[2021-10-24 15:15] LABS: Digoxin < 0.3 ng/mL (0.8-2.0)
[2021-10-24] MEDS ORDERED: Metoprolol XL (24 HR) Succ 25 MG TAB.ER.24H PO SCH ×2 (21:00)
[2021-10-24] MEDS: Furosemide 40 MG/4 ML VIAL IVP SCH (21:45)
[2021-10-25 02:55] LABS: Basophils % 0.8 %; Eosinophils # 0.2 K/mcL (0.0-0.6); Eosinophils % 5.2 %; Mean Corpuscular Hemoglobin 29.2 pg (28.0-33.3); Mean Platelet Volume 11.7 fL (9.4-12.4); White Blood Count 3.8 K/mcL (4.3-11.1)
[2021-10-25 02:57] LABS: Hematocrit 27.5 % (37.5-50.1); Hemoglobin 8.8 g/dL (12.9-16.9); Lymphocytes # 1.3 K/mcL (0.6-4.6); Lymphocytes % 34.2 %; Mean Corpuscular Volume 91.4 fL (83.0-100.0); Monocytes # 0.3 K/mcL (0.0-1.3); Monocytes % 8.1 %; Red Blood Count 3.01 M/mcL (4.19-5.50); Red Cell Distribution Width 14.2 % (11.5-14.5); Segmented Neutrophils % 51.7 %
[2021-10-25 03:01] LABS: Platelet Count 85 K/mcL (140-400)
[2021-10-25 03:02] LABS: INR 2.7; Prothrombin Time 29.9 Seconds (9.4-12.1)
[2021-10-25 03:14] LABS: Calcium 9.4 mg/dL (8.6-10.3); Magnesium 1.9 mg/dL (1.6-2.6); Potassium 3.9 mEq/L (3.5-5.1)
[2021-10-25] MEDS: Albumin 25% 25gram/100mL 25 GM/100 ML IV.SOLN IVPB SCH ×3 (05:18→21:31)
[2021-10-25] MEDS ORDERED: Metoprolol XL (24 HR) Succ 25 MG TAB.ER.24H PO SCH (07:41)
[2021-10-25] MEDS: Furosemide 40 MG/4 ML VIAL IVP SCH (08:47)
[2021-10-25] MEDS: Metoprolol XL (24 HR) Succ 25 MG TAB.ER.24H PO SCH ×2 (08:48→20:06)
[2021-10-25] MEDS: Cyanocobalamin (B-12) 1,000 MCG TABLET PO SCH (08:48)
[2021-10-25] MEDS: Aspirin Enteric Coated 81 MG Tablet PO SCH (08:48)
[2021-10-25] MEDS ORDERED: Albumin 25% 25gram/100mL 25 GM/100 ML IV.SOLN IVPB SCH (11:00)
[2021-10-25] MEDS ORDERED: Furosemide 20 MG/2 ML VIAL IVP SCH (21:00)
[2021-10-26 02:15] LABS: Potassium 3.6 mEq/L (3.5-5.1)
[2021-10-26] MEDS: Albumin 25% 25gram/100mL 25 GM/100 ML IV.SOLN IVPB SCH ×3 (06:07→23:51)
[2021-10-26] MEDS ORDERED: Albumin 25% 25gram/100mL 25 GM/100 ML IV.SOLN IVPB SCH (08:10)
[2021-10-26] MEDS: Metoprolol XL (24 HR) Succ 25 MG TAB.ER.24H PO SCH ×3 (08:44→19:49)
[2021-10-26] MEDS: Aspirin Enteric Coated 81 MG Tablet PO SCH (08:48)
[2021-10-26] MEDS: Cyanocobalamin (B-12) 1,000 MCG TABLET PO SCH (08:48)
[2021-10-26] MEDS: Sennosides/Docusate Sodium TABLET PO SCH ×2 (12:17→19:49)
[2021-10-27 01:39] LABS: Lymphocytes % 39.2 %; Mean Corpuscular Hemoglobin 29.5 pg (28.0-33.3); Monocytes % 7.8 %; Red Cell Distribution Width 14.2 % (11.5-14.5)
[2021-10-27 01:42] LABS: Basophils % 0.8 %; Eosinophils # 0.2 K/mcL (0.0-0.6); Eosinophils % 4.9 %; Hematocrit 27.5 % (37.5-50.1); Hemoglobin 8.8 g/dL (12.9-16.9); Immature Granulocytes % 0.4 % (0-4); Immature Platelets 8.2 % (1.1-6.1); Mean Corpuscular Volume 92.3 fL (83.0-100.0); Mean Platelet Volume 11.4 fL (9.4-12.4); Monocytes # 0.4 K/mcL (0.0-1.3); Neutrophils # 2.2 K/mcL (1.6-8.9); Red Blood Count 2.98 M/mcL (4.19-5.50); Segmented Neutrophils % 46.9 %; White Blood Count 4.7 K/mcL (4.3-11.1)
[2021-10-27 01:45] LABS: Lymphocytes # 1.8 K/mcL (0.6-4.6); Platelet Count 91 K/mcL (140-400)
[2021-10-27 01:59] LABS: BUN/Creatinine Ratio 27 (6-26); Blood Urea Nitrogen 33 mg/dL (8-23); Calcium 9.5 mg/dL (8.6-10.3); Carbon Dioxide 27 mEq/L (23-29); Chloride 101 mEq/L (98-107); Glucose 104 mg/dL (70-105); Osmolality,Calculated 294 (280-300); Potassium 3.8 mEq/L (3.5-5.1); Sodium 138 mEq/L (136-145); eGFR For African Americans > 60 (> 60); eGFR For Non-African Americans 57 (> 60)
[2021-10-27 02:11] LABS: Phosphorous 3.9 mg/dL (2.7-4.5)
[2021-10-27 02:22] LABS: Folate 9.8 ng/mL (3.0-16.0)
[2021-10-27 07:16] VITALS: BP 98/65; PULSE 82; TEMP 97.4; O2SAT 90
[2021-10-27] MEDS: Cyanocobalamin (B-12) 1,000 MCG TABLET PO SCH (08:30)
[2021-10-27] MEDS: Sennosides/Docusate Sodium TABLET PO SCH (08:31)
[2021-10-27] MEDS: Albumin 25% 25gram/100mL 25 GM/100 ML IV.SOLN IVPB SCH (08:31)
[2021-10-27] MEDS: Aspirin Enteric Coated 81 MG Tablet PO SCH (08:31)
[2021-10-27] MEDS: Metoprolol XL (24 HR) Succ 25 MG TAB.ER.24H PO SCH (08:31)
[2021-10-27] MEDS ORDERED: Furosemide 20 MG TABLET PO SCH (09:00)
== END 2021-10-27 10:42 | disposition home or self-care (01) | DRG 292 ==
LOC: EMEROOARM 10:59 → 3BNU 10:59 → SUATTDRO 13:19 → 3BNU 14:50 → SUATTDRO 10-25 11:15
PROVIDERS: ADMIT Family Medicine; ATTEND Nurse Practitioner